=== PATIENT | male | born 1975 | race Caucasian/White ===

== ENCOUNTER 2016-12-16 18:35 | Emergency (ER) | payer BC ==
[~2016-12-16] VITALS: Ht 175.3 cm; Wt 121.9 kg
[~2016-12-16 18:35] MED LIST: LISI-729 PO
[2016-12-16 18:36] VITALS: TEMP 36.7; Ht 175.3 cm; Wt 121.9 kg
[2016-12-16] MEDS ORDERED: ONDANSETRON INJ 2 MG/ML 2 ML VIAL IV STA (18:47)
[2016-12-16] MEDS ORDERED: SODIUM CHLORIDE 0.9% 1000ML 500 ML IV STA (18:47)
[2016-12-16] MEDS ORDERED: SODIUM CHLORIDE 0.9% 1000ML 1,000 ML IV STA (18:47)
[2016-12-16] MEDS ORDERED: RANITIDINE HCL 50 MG/100 ML D5W IV STA (18:47)
[2016-12-16 19:06] LABS: URINE APPEARANCE CLEAR (CLEAR); URINE BILIRUBIN NEG (NEG); URINE COLOR YELLOW; URINE NITRITE NEG (NEG); URINE SPECIFIC GRAVITY 1.016 (1.000-1.030); UROBILINOGEN NEG (NEG); ZZUR CULT IF INDIC CLEAN CATCH NO
[2016-12-16 19:10] LABS: MANUAL MICROSCOPIC REQUIRED? NO; REVIEW REQ? NO
--- NOTE | 2016-12-16 19:15 | DIAGNOSTIC IMAGING REPORT ---
CHEST ONE VIEW PORTABLE CLINICAL HISTORY: Abdominal pain. COMPARISON STUDY: Chest radiograph March 12, 2011. FINDINGS: Lung volumes are normal. No pneumothorax or pleural effusion is present. Cardiac size is normal. Mediastinal contours are normal. There is no evidence of pulmonary edema. Cardiomediastinal silhouette is unremarkable. IMPRESSION: No acute cardiopulmonary findings. Electronically signed by: Arthur Varghese M.D. 12/16/2016 7:13 PM Dictated Date/Time: 12/16/2016 7:13 PM
--- NOTE | 2016-12-16 19:39 | EMERGENCY ROOM VISIT NOTE ---
History Report prepared by Erica: Brendan Jiang Under the Supervision of: Dr. Amrit Medellin M.D. First contact with patient: 18:42 Chief Complaint: GI ASSESSMENT Stated Complaint: STOMACH PAIN, VOMITING W/BLOOD, DIARRHEA, NAUSEA Nursing Triage Summary: Pt c/o being "sick in the stomach and throwing up blood. We just saw the blood today." Pt states patient has had diarrhea, pain and nausea. Mid epigastric pain "Like heartburn" History of Present Illness The patient is a 41 year old male who presents to the Emergency Room with complaints of constant nausea that began a week ago. He rates his pain as a 4/ 10 in severity and states that his nausea is worsened after eating. The patient reports that two weeks ago he started to experience heartburn, which he took medication for. He states that his symptoms would return shortly after the medication "wore off". The patient is accompanied by his who states that his heartburn occurs after he eats anything acidic, drinks coffee, or chews. The patient states that he has been experiencing nausea, intermittent vomiting, diarrhea, and lightheadedness for the last week. He admits that his heartburn symptoms have been new. The patient also states that his diarrhea has been "black as coal" since yesterday. The patient states that he went to [employer] this morning and came back home to eat lunch, which is when he last experienced an episode of vomiting with blood clots. The patient reports that he currently is experiencing upper abdominal pain. His states that he has an appointment on January 02 with a GI doctor for an endoscopy and a colonoscopy. He states that his PCP is Dr. Hodges. He denies any ulcer history and any syncopal episode. Source of History: patient Onset: a week ago Position: other (global) Symptom Intensity: 4/10 Timing: constant Modifying Factors (Worsening): other (drinking coffee, acidic foods) Associated Symptoms: + vomiting, + diarrhea, No LOC Review of Systems See HPI for pertinent positives & negatives. A total of 10 systems reviewed and were otherwise negative. Past Medical & Surgical Surgical Problems: (1) H/O vasectomy Family History Patient reports no known family medical history. Social History Smoking Status: Former Smoker Marital Status: Housing Status: lives with significant other Occupation Status: employed Current/Historical Medications Scheduled Pantoprazole (Protonix), 20 MG PO DAILY Ranitidine (Zantac), 150 MG PO BID Allergies Coded Allergies: Lidocaine (Verified Allergy, Unknown, "SEVERE HIVES", 12/16/15) Meperidine (Verified Allergy, Unknown, EXTREMELY ILL, 12/16/15) Physical Exam Vital Signs Date Time Temp Pulse Resp B/P (MAP) Pulse Ox O2 Delivery O2 Flow Rate FiO2 12/16/16 20:35 55 18 157/100 97 Room Air 12/16/16 18:36 36.7 64 18 166/104 95 Room Air Physical Exam GENERAL: Patient is in no acute distress. HEENT: No acute trauma, normocephalic atraumatic, mucous membranes moist, no nasal congestion, no scleral icterus. NECK: No stridor, no adenopathy, no meningismus, trachea is midline. LUNGS: Clear to auscultation bilaterally, no wheeze, no rhonchi, breath sounds equal. HEART: Without murmurs gallops or rubs, regular rate and rhythm. ABDOMEN: Soft, tender in epigastrium along the right side of the abdomen, bowel sounds positive, no hernias, no peritonitis. EXTREMITIES: No cyanosis or edema, full range of motion of all the joints without pain or difficulty, no signs for acute trauma. NEUROLOGIC: Oriented x 3, no acute motor or sensory deficits, no focal weakness. SKIN: No rash, no jaundice, no diaphoresis. RECTAL: Brown stool, heme negative. Medical Decision & Procedures ER Provider Diagnostic Interpretation: Radiology results as stated below per my review and radiologist interpretation: CHEST ONE VIEW PORTABLE CLINICAL HISTORY: Abdominal pain. COMPARISON STUDY: Chest radiograph March 12, 2011. FINDINGS: Lung volumes are normal. No pneumothorax or pleural effusion is present. Cardiac size is normal. Mediastinal contours are normal. There is no evidence of pulmonary edema. Cardiomediastinal silhouette is unremarkable. IMPRESSION: No acute cardiopulmonary findings. Electronically signed by: Arthur Varghese M.D. 12/16/2016 7:13 PM Dictated Date/Time: 12/16/2016 7:[address] OF THE ABDOMEN AND PELVIS WITH CONTRAST CLINICAL HISTORY: Abdominal pain, diarrhea, vomiting and nausea. COMPARISON STUDY: None. TECHNIQUE: Following IV administration of 116. mL of Optiray-320, axial images of the abdomen and pelvis were obtained from the lung bases to the proximal femurs. Images were reviewed in the axial, sagittal, and coronal planes. IV contrast was administered without complication. A dose lowering technique was utilized adhering to the principles of ALARA. CT DOSE: 1406.73 mGy.cm FINDINGS: There is probable fatty infiltration of the liver. Multiple subcentimeter hepatic lesions are too small characterize but likely reflect cysts. The spleen, adrenal glands, kidneys and pancreas are normal. There is no biliary or pancreatic ductal dilatation. There is no peripancreatic or pericholecystic infiltration. The caliber and wall thickness of small and large bowel are normal. The appendix is normal. No pneumatosis, free air or portal venous gas is present. There is no lymphadenopathy. No suspicious skeletal lesions are identified. There is a 7 mm right renal cyst. IMPRESSION: 1. No acute process within the abdomen or pelvis. 2. Probable fatty infiltration of liver. Electronically signed by: Arthur Varghese M.D. 12/16/2016 8:31 PM Dictated Date/Time: 12/16/2016 8:23 PM Laboratory Results 12/16/16 19:15 Red Blood Count 5.16, Mean Corpuscular Volume 84.1, Mean Corpuscular Hemoglobin 28.9, Mean Corpuscular Hemoglobin Concent 34.3, Mean Platelet Volume 9.8, Neutrophils (%) (Auto) 52.8, Lymphocytes (%) (Auto) 36.4, Monocytes (%) (Auto) 8.6, Eosinophils (%) (Auto) 1.7, Basophils (%) (Auto) 0.2, Neutrophils # (Auto) 3.11, Lymphocytes # (Auto) 2.15, Monocytes # (Auto) 0.51, Eosinophils # (Auto) 0.10, Basophils # (Auto) 0.01 12/16/16 19:15 Test 12/16/16 00:00 12/16/16 19:15 Urine Color YELLOW Urine Appearance CLEAR (CLEAR) Urine pH 7.0 (4.5-7.5) Urine Specific [place] 1.016 (1.000-1.030) Urine Protein NEG (NEG) Urine Glucose (UA) NEG (NEG) Urine Ketones NEG (NEG) Urine Occult Blood NEG (NEG) Urine Nitrite NEG (NEG) Urine Bilirubin NEG (NEG) Urine Urobilinogen NEG (NEG) Urine Leukocyte Esterase NEG (NEG) White Blood Count 5.90 K/uL (4.8-10.8) Red Blood Count 5.16 M/uL (4.7-6.1) Hemoglobin 14.9 g/dL (14.0-18.0) Hematocrit 43.4 % (42-52) Mean Corpuscular Volume 84.1 fL (80-100) Mean Corpuscular Hemoglobin 28.9 pg (25-34) Mean Corpuscular Hemoglobin Concent 34.3 g/dl (32-36) Platelet Count 222 K/uL (130-400) Mean Platelet Volume 9.8 fL (7.4-10.4) Neutrophils (%) (Auto) 52.8 % Lymphocytes (%) (Auto) 36.4 % Monocytes (%) (Auto) 8.6 % Eosinophils (%) (Auto) 1.7 % Basophils (%) (Auto) 0.2 % Neutrophils # (Auto) 3.11 K/uL (1.4-6.5) Lymphocytes # (Auto) 2.15 K/uL (1.2-3.4) Monocytes # (Auto) 0.51 K/uL (0.11-0.59) Eosinophils # (Auto) 0.10 K/uL (0-0.5) Basophils # (Auto) 0.01 K/uL (0-0.2) RDW Standard Deviation 39.7 fL (36.4-46.3) RDW Coefficient of Variation 13.1 % (11.5-14.5) Immature Granulocyte % (Auto) 0.3 % Immature Granulocyte # (Auto) 0.02 K/uL (0.00-0.02) Platelet Estimate NORMAL Red Blood Cell Morphology Unremarkable Prothrombin Time 11.3 SECONDS (9.0-12.0) Prothromb Time International Ratio 1.1 (0.9-1.1) Activated Partial Thromboplast Time 27.5 SECONDS (21.0-31.0) Partial Thromboplastin Ratio 1.1 Anion Gap 6.0 mmol/L (3-11) Est Creatinine Clear Calc Drug Dose 130.5 ml/min Estimated GFR () 112.1 Estimated GFR (Non- 96.7 BUN/Creatinine Ratio 17.9 (10-20) Calcium Level 8.4 mg/dl (8.5-10.1) Total Bilirubin 0.4 mg/dl (0.2-1) Aspartate Amino Transf (AST/SGOT) 19 U/L (15-37) Alanine Aminotransferase (ALT/SGPT) 43 U/L (12-78) Alkaline Phosphatase 55 U/L (45-117) Total Protein 7.5 gm/dl (6.4-8.2) Albumin 3.8 gm/dl (3.4-5.0) Globulin 3.7 gm/dl (2.5-4.0) Albumin/Globulin Ratio 1.0 (0.9-2) Lipase 154 U/L (73-393) Laboratory results reviewed by me. Medications Administered Medications (Trade) Dose Ordered Sig/Osmar Route Start Time Stop Time Status Last Admin Dose Admin Sodium Chloride 500 ml @ 999 mls/hr Q31M STAT IV 12/16/16 18:47 12/16/16 19:17 DC 12/16/16 18:47 999 MLS/HR Ondansetron HCl (Zofran Inj) 4 mg NOW STAT IV 12/16/16 18:47 12/16/16 18:52 DC 12/16/16 19:13 4 MG Sodium Chloride 1,000 ml @ 200 mls/hr Q5H STAT IV 12/16/16 18:47 12/16/16 21:19 DC 12/16/16 18:47 200 MLS/HR Ranitidine HCl (zANTac IV) 50 mg NOW STAT IV 12/16/16 18:47 12/16/16 18:52 DC 12/16/16 19:13 50 MG Pantoprazole Sodium (Protonix Tab) 40 mg NOW STAT PO 12/16/16 20:35 12/16/16 20:36 DC 12/16/16 20:48 40 MG ECG Indication: abdominal pain Rate (beats per minute): 58 Rhythm: sinus bradycardia Findings: no acute ischemic change, no ectopy ED Course 1841: The patient was evaluated in room B02. A complete history and physical exam was performed. 1846: Zantac IV 50 mg IV, Sodium Chloride 1000 ml @ 200 mls/hr IV, Zofran Injection 4 mg IV, Sodium Chloride 500 ml @ 999 mls/hr IV. 2034: Protonix Tab 40 mg PO. 2044: Reevaluated the patient. Discussed results and discharge instructions: He verbalized understanding and agreement. The patient is ready for discharge. Medical Decision The patient is a 41 year old male who presents to the ED with complaints of constant nausea that began a week ago. Differential diagnoses considered include upper or lower GI bleeding, esophageal tear, gastritis or ulcer, pancreatitis, diverticulitis, appendicitis, dehydration, and UTI. There is no leukocytosis or concerning anemia. No significant electrolyte abnormality, kidney failure, hepatitis or pancreatitis. Urinalysis does not show infection. Chest x-ray shows no pneumonia, free air or mediastinal widening. EKG shows a sinus rhythm, no acute ischemia. Abdominal and pelvis CT does not show diverticulitis or pancreatitis. There is no bowel obstruction. No acute surgical process based on the CT results. Stool heme testing was negative. The patient received IV saline, IV Zofran and IV Zantac. He was given a dose of oral Protonix, he feels markedly better. Patient presents with epigastric abdominal pain, he has had vomiting. He does have worsening symptoms with eating. He has an upcoming appointment with GI in a week or 2. The patient is being placed on Zantac and Protonix. I want him to take these regularly. He can return here for worsening symptoms or lack of improvement. He was told to stick to a very bland diet for the next few days. He likely has gastritis. The hematemesis earlier was likely from just the retching itself. Medication Reconcilliation Current Medication List: was personally reviewed by me Blood Pressure Screening Patient's blood pressure: Elevated blood pressure Blood pressure disposition: Elevated BP felt to be situational Impression Primary Impression: Epigastric abdominal pain Additional Impressions: Vomiting Diarrhea Scribe Attestation The scribe's documentation has been prepared under my direction and personally reviewed by me in its entirety. I confirm that the note above accurately reflects all work, treatment, procedures, and medical decision making performed by me. Departure Information Dispostion Home / Self-Care Prescriptions Pantoprazole (Protonix) 20 Mg Tab 20 MG PO DAILY, #30 TAB Prov: Amrit Medellin M.D. 12/16/16 Ranitidine (Zantac) 150 Mg Tab 150 MG PO BID for 7 Days, #14 TAB Prov: Amrit Medellin M.D. 12/16/16 Referrals Christian Hodges D.O. (PCP) Forms HOME CARE DOCUMENTATION FORM, IMPORTANT VISIT INFORMATION Patient Instructions My [facility] Additional Instructions bland diet---crackers, soup, toast, gatorade zantac 2x per day for 1 week protonix daily for 1 month rest return for worsening symptoms or fever or persistent vomiting follow with GI as scheduled Problem Qualifiers
[2016-12-16 19:47] LABS: INR 1.1 (0.9-1.1); PARTIAL THROMBOPLASTIN RATIO 1.1; PROTHROMBIN TIME (PATIENT) 11.3 SECONDS (9.0-12.0)
[2016-12-16 19:55] LABS: BUN/CREATININE RATIO 17.9 (10-20); CALCIUM 8.4 mg/dl (8.5-10.1); CREATININE 0.98 mg/dl (0.60-1.40)
[2016-12-16 20:15] LABS: BASO % 0.2 %; BASO ABS # 0.01 K/uL (0-0.2); COMPLETE YES; EOS % 1.7 %; HEMATOCRIT 43.4 % (42-52); IG% 0.3 %; LYMPH % 36.4 %; LYMPH ABS # 2.15 K/uL (1.2-3.4); MEAN CELL VOLUME 84.1 fL (80-100); MEAN CORPUSCULAR HEMOGLOBIN 28.9 pg (25-34); MEAN CORPUSCULAR HGB CONC 34.3 g/dl (32-36); MEAN PLATELET VOLUME 9.8 fL (7.4-10.4); MONO % 8.6 %; NEUT % 52.8 %; PLATELET COUNT 222 K/uL (130-400); PLT ESTIMATE NORMAL; RED BLOOD COUNT 5.16 M/uL (4.7-6.1)
[2016-12-16] MEDS ORDERED: OPTIRAY 320 IV PRN (20:15)
--- NOTE | 2016-12-16 20:33 | DIAGNOSTIC IMAGING REPORT ---
CT OF THE ABDOMEN AND PELVIS WITH CONTRAST CLINICAL HISTORY: Abdominal pain, diarrhea, vomiting and nausea. COMPARISON STUDY: None. TECHNIQUE: Following IV administration of 116. mL of Optiray-320, axial images of the abdomen and pelvis were obtained from the lung bases to the proximal femurs. Images were reviewed in the axial, sagittal, and coronal planes. IV contrast was administered without complication. A dose lowering technique was utilized adhering to the principles of ALARA. CT DOSE: 1406.73 mGy.cm FINDINGS: There is probable fatty infiltration of the liver. Multiple subcentimeter hepatic lesions are too small characterize but likely reflect cysts. The spleen, adrenal glands, kidneys and pancreas are normal. There is no biliary or pancreatic ductal dilatation. There is no peripancreatic or pericholecystic infiltration. The caliber and wall thickness of small and large bowel are normal. The appendix is normal. No pneumatosis, free air or portal venous gas is present. There is no lymphadenopathy. No suspicious skeletal lesions are identified. There is a 7 mm right renal cyst. IMPRESSION: 1. No acute process within the abdomen or pelvis. 2. Probable fatty infiltration of liver. Electronically signed by: Arthur Varghese M.D. 12/16/2016 8:31 PM Dictated Date/Time: 12/16/2016 8:23 PM
[2016-12-16 20:35] VITALS: BP 157/100; PULSE 55; O2SAT 97
[2016-12-16] MEDS ORDERED: PANTOprazole SOD 40 MG TAB PO STA (20:35)
[2016-12-16] MEDS ORDERED: PRT/20 PO (20:49)
[2016-12-16] MEDS ORDERED: ZNTT/150 PO (20:49)
== END 2016-12-16 21:00 | disposition home or self-care (01) ==
LOC: C.EDB 18:36
DX: R10.13 Epigastric pain (principal); R11.2 Nausea with vomiting, unspecified; R19.7 Diarrhea, unspecified; Z87.891 Personal history of nicotine dependence; Z98.52 Vasectomy status

== ENCOUNTER 2023-11-05 10:39 | Inpatient (IN) ==
--- NOTE | 2023-11-05 11:15 | Emergency Department Note ---
Impression & Plan Chest pain, Hypertension ED Provider Note ED Provider Note NAME: JENNIFER DAN AGE:48 SEX: Male : 1975 ARRIVES VIA: Private vehicle INFORMANT: Patient ED PROVIDER(s): Denise Ashby DO CHIEF COMPLAINT: Chest pain, high blood pressure, referred from office HPI: This is a 48-year-old male presents emerged from due to concern for atypical chest pain after it was noted he had significantly elevated blood pressure readings in a [facility] office. Patient states his blood pressure is always high despite his use of medication. He states he has had chest pain for several weeks, mostly central and slightly left-sided and does radiate into his left upper extremity. He states today it also began radiating into his back and left neck. He denies any coming nausea, vomiting, dizziness, shortness of breath. No recent fevers, chills, or URI symptoms. No recent change in diet or medication. He denies any recent leg swelling. He does admit to coming paresthesias in the left upper extremity, no weakness. He describes the pain as sharp closer to the center and duller out towards the shoulder and into the arm. Patient states pain felt similar to when he ended up having a cardiac catheterization. He said that was 2 years ago. PAST MEDICAL HISTORY:See Below PAST SURGICAL HISTORY:See Below FAMILY HISTORY:See Below SOCIAL HISTORY:See Below HOME MEDICATIONS:See Below ALLERGIES:See Below VITALS:See Below PHYSICAL EXAMINATION: GENERAL: alert, well appearing, well nourished, no distress, non-toxic EYE EXAM: normal conjunctiva, PERRL and EOM's grossly intact OROPHARYNX: no exudate, no erythema, lips, buccal mucosa, and tongue normal and mucous membranes are moist NECK: supple, no nuchal rigidity, no adenopathy, non-tender LUNGS: Clear to auscultation. Normal chest wall mechanics, no w/r/r HEART: no murmurs, S1 normal and S2 normal, pain with palpation over the left anterior superior chest wall laterally closer to the shoulder ABDOMEN: abdomen soft, non-tender, normo-active bowel sounds, no masses, no rebound or guarding. BACK: Back is symmetrical on inspection and there is no deformity, no midline tenderness, no CVA tenderness. SKIN: no rashes, petechiae, orbruising UPPER EXTREMITIES: upper extremities are grossly normal. FROM, nml pulses b/l. LOWER EXTREMITIES: No pitting edema. FROM, nml pulses b/l. NEURO EXAM: Normal sensorium, cranial nerves II-XII grossly intact, normal speech, no facial droop,nogross weakness of arms, no gross weakness of legs. Gross sensation intact. No ataxia. Vital Signs: reviewed and remarkable Differential Diagnosis: acute coronary syndrome, pericarditis, pulmonary embolus, aortic dissection, pneumonia, pneumothorax, musculoskeletal pain, shingles, GERD, GI bleed, as well as others were considered MEDICAL DECISION MAKING: This is a 48-year-old male presents emerged from due to concern for chest pain that has been ongoing as well as noted high blood pressure. He was noted to be significantly hypertensive on arrival with other vital signs stable. Labs drawn and sent, IV established, EKG and chest x-ray performed bedside interpreted by me and patient monitor on telemetry. Patient given IV hydralazine with improvement in his blood pressure and mild improvement in his symptoms. Patient's labs and imaging are reassuring. Patient did require several doses of IV hydralazine in order to maintain a slightly lower level the patient was still significantly hypertensive. Upon review of prior outpatient records he has been tried on several other classes of antihypertensives with unfortunate adverse reactions. Patient given IV fluids, IV Tylenol, IV Pepcid, and eventually IV fentanyl additionally after discussion with the hospitalist at bedside as patient is having worsening pain. Patient with multiple risk factors for ACS and does have documented CAD. Due to persistent pain as well as uncontrolled hypertension at this time I feel he would benefit from additional inpatient evaluation and management. Patient verbalized understanding of all results and was in agreement with the plan. Case discussed with hospitalist team for additional evaluation and management. Consultation(s): 1355: Discussed with No [facility] hospitalist team for additional evaluation and management. ER Treatment Provided: See below Diagnostics Interpreted By Me: -ECG: Sinus bradycardia at 59, normal axis, normal intervals, no acute ST/T wave changes -Cardiac Monitoring: An order was placed for continuous cardiac monitoring. The monitor shows a rate of 78 with normal sinus rhythm. -Laboratory studies: As stated above and show below. -Imaging studies: X-ray Chest: A single view study of the chest was reviewed and was negative for cardiomegaly, focal infiltrate, effusion, pulmonary edema, or wide mediastinum. Triage Nursing Note Reviewed Prior/Outside Records Reviewed -prior cardiology catheterization and evaluation obtained from [facility] records which show 60% LAD lesion on cardiac catheterization from 2021 Past Med/Surg History Problem List (Updated 11/05/23 @ 16:14 by John Ferguson) Dyslipidemia, goal LDL below 70 Nonobstructive atherosclerosis of coronary artery Chest pain at rest Uncontrolled hypertension Hypertensive urgency Chest pain Hypertension (Acute) Medical History History of hypertension Romero's esophagus GERD (gastroesophageal reflux disease) CAD (coronary artery disease) Dyslipidemia OLIVIER (obstructive sleep apnea) Right ankle instability Right ankle pain Surgical History No pertinent past surgical history Family History Other Hypertension Social History Smoking Status: Former smoker Tobacco Type: Smokeless Tobacco (Dip or Chew) Age Quit Using Tobacco: 46; Second Hand Exposure: No; Do You Dip or Chew Tobacco: No; Tobacco Cessation Education Requested by Patient: No Hx Alcohol Use: No Hx Substance Use: No Preferred Language: Malagasy Communication Ability: Effective Housing Inspector Required: No Beliefs That Will Affect Care: None Current Living Situation: Spouse and Family Other Information That Helps Us Care for You: No Feels Safe at Home: Yes Safety Concerns: Feels Safe At This Time Allergies Allergies Allergy/AdvReac Type Severity Reaction Status Date / Time lidocaine Allergy Unknown "SEVERE Verified 11/05/23 13:15 HIVES" meperidine Allergy Unknown EXTREMELY Verified 11/05/23 13:15 ILL oxycodone AdvReac Intermediate sick Verified 11/05/23 21:36 nitroglycerin AdvReac Headache Verified 11/05/23 21:34 Home Meds Home Medications Medication Instructions Recorded Confirmed amlodipine 2.5 mg tablet 5 mg PO DAILY 11/05/23 11/05/23 aspirin 81 mg tablet,delayed 81 mg PO QAM 11/05/23 11/05/23 release losartan 100 mg tablet 100 mg PO QAM 11/05/23 11/05/23 Results & Data (ED) Vital Signs Vital Signs - 24 hr 11/05/23 10:41 11/05/23 11:00 11/05/23 11:03 Temperature 36.5 C Temperature Source Temporal Artery Scan Pulse Rate 64 64 60 Pulse Rate from SpO2 Sensor 64 Respiratory Rate 18 20 Respiratory Effort / Characteristics Respiratory Depth Blood Pressure 239/112 H 228/129 H Blood Pressure Mean 154 162 Pulse Oximetry 98 99 Oxygen Delivery Method Room Air Room Air Sepsis New/Unexplained Change in Mental Status No Sepsis Action Taken by Nursing No Action Required 11/05/23 11:09 11/05/23 11:54 11/05/23 12:05 Temperature Temperature Source Pulse Rate 62 67 Pulse Rate from SpO2 Sensor 61 Respiratory Rate 20 20 Respiratory Effort / Characteristics Non-Labored Spontaneous Respiratory Depth Normal Blood Pressure 207/124 H 167/110 H Blood Pressure Mean 151 114 Pulse Oximetry 97 99 Oxygen Delivery Method Room Air Room Air Sepsis New/Unexplained Change in Mental Status Sepsis Action Taken by Nursing 11/05/23 12:10 11/05/23 12:15 11/05/23 12:17 Temperature Temperature Source Pulse Rate 65 61 59 L Pulse Rate from SpO2 Sensor Respiratory Rate 18 18 18 Respiratory Effort / Characteristics Respiratory Depth Blood Pressure 186/115 H 166/111 H 171/100 H Blood Pressure Mean 134 122 132 Pulse Oximetry 99 99 98 Oxygen Delivery Method Room Air Room Air Room Air Sepsis New/Unexplained Change in Mental Status Sepsis Action Taken by Nursing 11/05/23 12:42 11/05/23 13:30 11/05/23 13:45 Temperature Temperature Source Pulse Rate 67 73 65 Pulse Rate from SpO2 Sensor 67 74 64 Respiratory Rate 21 20 20 Respiratory Effort / Characteristics Respiratory Depth Blood Pressure 193/135 H 175/121 H 195/107 H Blood Pressure Mean 154 139 136 Pulse Oximetry 98 98 97 Oxygen Delivery Method Room Air Room Air Sepsis New/Unexplained Change in Mental Status Sepsis Action Taken by Nursing 11/05/23 14:01 Temperature Temperature Source Pulse Rate 72 Pulse Rate from SpO2 Sensor 70 Respiratory Rate 20 Respiratory Effort / Characteristics Respiratory Depth Blood Pressure 168/94 H Blood Pressure Mean 116 Pulse Oximetry 97 Oxygen Delivery Method Room Air Sepsis New/Unexplained Change in Mental Status Sepsis Action Taken by Nursing Laboratory Data 11/06/23 02:24 11/06/23 02:24 Lab Results 11/05/23 11/05/23 11/05/23 Range/Units 10:54 11:12 12:33 WBC 4.78 L (4.8-10.8) K/ul RBC 5.32 (4.70-6.10) M/uL Hgb 15.2 (14.0-18.0) g/dl Hct 43.6 (42.0-52.0) % MCV 82.0 (80.0-100.0) fL MCH 28.6 (25.0-34.0) pg MCHC 34.9 (32.0-36.0) g/dL RDW Std Deviation 43.8 (36.4-46.3) fL RDW Coeff of Sandi 14.9 H (11.5-14.5) % Plt Count 237 (130-400) K/uL MPV 9.5 (9.4-12.4) fL Immature Gran % (Auto) 0.4 % Neut % (Auto) 48.7 % Lymph % (Auto) 37.9 % [place] % (Auto) 10.5 % Eos % (Auto) 2.1 % Baso % (Auto) 0.4 % Neut # (Auto) 2.33 (1.40-6.50) K/uL Lymph # (Auto) 1.81 (1.20-3.40) K/uL [place] # (Auto) 0.50 (0.11-0.59) K/uL Eos # (Auto) 0.10 (0.00-0.50) K/uL Baso # (Auto) 0.02 (0.00-0.20) K/uL Immature Gran # (Auto) 0.02 (0.01-0.20) K/uL PT 10.8 (9.0-12.0) Seconds INR 1.0 (0.9-1.1) D-Dimer 290 (0-500) ug/L FEU Sodium 136 (136-145) mmol/L Potassium 3.7 (3.5-5.1) mmol/L Chloride 102 (98-107) mmol/L Carbon Dioxide 31 (21-32) mmol/L Anion Gap 3 (3-11) BUN 13 (6-23) mg/dl Creatinine 0.77 (0.6-1.4) mg/dl Est Cr Clr Drug Dosing 156.7 ml/min Est GFR ( Amer) 126.1 ml/min Est GFR (Non-Af Amer) 108.8 ml/min BUN/Creatinine Ratio 16.9 (10-20) Glucose 94 (70-99(Fasting)) mg/dl Calcium 9.2 (8.6-10.3) mg/dl Magnesium 2.0 (1.7-2.4) mg/dl Total Bilirubin 0.7 (0.2-1.0) mg/dl AST 16 (13-39) U/L ALT 19 (7-52) U/L Alkaline Phosphatase 44 (34-104) U/L Troponin I High Sens 5.6 (0-20) pg/ml Total Protein 7.4 (6.0-8.3) gm/dl Albumin 4.3 (3.4-5.0) gm/dl Globulin 3.1 (2.5-4.0) gm/dl Albumin/Globulin Ratio 1.4 (0.9-2) Lipase 29 (11-82) U/L TSH 1.947 (0.300-4.500) uIu/ml Urine Color Yellow Urine Appearance Clear (Clear) Urine pH 6.0 (4.5-7.5) Ur Specific [place] 1.014 (1.000-1.030) Urine Protein Negative (Negative) Urine Glucose (UA) Negative (Negative) Urine Ketones Negative (Negative) Urine Blood Negative (Negative) Urine Nitrite Negative (Negative) Urine Bilirubin Negative (Negative) Urine Urobilinogen Negative (Negative) Ur Leukocyte Esterase Negative (Negative) Anaplasma Smear See Comment Babesia Smear See Comment Lyme Disease Screen Negative (Negative) Administered Medications Acetaminophen (Acetaminophen 325 Mg Tab) 650 mg PO Q4H PRN PRN Reason: pain/fever Stop: 12/05/23 16:48 Last Admin: 11/05/23 20:06 Dose: 650 mg Documented By: RUFINO Hydrocodone Bitart/Acetaminophen (Hydrocodone/Acetamophen 5/325mg Tab) 1 tab PO QID PRN PRN Reason: Pain Stop: 11/19/23 21:36 Last Admin: 11/05/23 21:56 Dose: 1 tab Documented By: SIERRA Carvedilol (Carvedilol 3.125 Mg Tab) 3.125 mg PO BIDM TERENCE Stop: 12/05/23 16:59 Last Admin: 11/05/23 18:12 Dose: 3.125 mg Documented By: SAV Fentanyl Citrate (Fentanyl Citrate Pf 100 Mcg/2 Ml Vial) 50 mcg IV Q15M PRN PRN Reason: Pain Stop: 11/19/23 14:48 Last Admin: 11/05/23 14:56 Dose: 50 mcg Documented By: KATHERINE Hydralazine HCl (Hydralazine Hcl 20 Mg/Ml Vial) 5 mg IV Q4H PRN PRN Reason: Blood Pressure - High Stop: 12/05/23 16:48 Last Admin: 11/05/23 21:23 Dose: 5 mg Documented By: SIERRA Nitroglycerin (Nitroglycerin 2% Ointment 30gm Tube) 1 inch EXT Q6H TERENCE Stop: 12/05/23 16:29 Last Admin: 11/05/23 18:16 Dose: 1 inch Documented By: SAV Discontinued Medications Amlodipine Besylate (Amlodipine Besylate 5 Mg Tab) 5 mg PO NOW ONE Stop: 11/05/23 23:10 Last Admin: 11/05/23 23:26 Dose: 5 mg Documented By: SIERRA Hydralazine HCl (Hydralazine Hcl 20 Mg/Ml Vial) 5 mg IV NOW ONE Stop: 11/05/23 11:40 Last Admin: 11/05/23 12:00 Dose: 5 mg Documented By: Hydralazine HCl (Hydralazine Hcl 20 Mg/Ml Vial) 5 mg IV NOW ONE Stop: 11/05/23 13:20 Last Admin: 11/05/23 13:40 Dose: 5 mg Documented By: Hydralazine HCl (Hydralazine Hcl 20 Mg/Ml Vial) 5 mg IV NOW ONE Stop: 11/05/23 14:36 Last Admin: 11/05/23 14:42 Dose: 5 mg Documented By: KATHERINE Acetaminophen (Ofirmev) 1,000 mg in 100 mls @ 400 mls/hr IV NOW STA Stop: 11/05/23 13:19 Last Infusion: 11/05/23 13:57 Dose: Infused Documented By: Admin: 11/05/23 13:41 Dose: 400 mls/hr Documented By: Famotidine (Pepcid 20mg Iv Push) 20 mg in 5 mls @ 2.5 mls/min IV NOW STA Stop: 11/05/23 13:06 Last Admin: 11/05/23 13:40 Dose: 2.5 mls/min Documented By: MSG Promethazine HCl 12.5 mg/ (Sodium Chloride) 50.5 mls @ 202 mls/hr IV NOW STA Stop: 11/05/23 21:39 Last Infusion: 11/05/23 22:09 Dose: Infused Documented By: Admin: 11/05/23 21:54 Dose: 202 mls/hr Documented By: SIERRA Nitroglycerin (Nitroglycerin Sl 0.4 Mg/Tab Tab) Confirm Administered Dose 0.4 mg .ROUTE .STK-MED ONE Stop: 11/05/23 14:38 Last Admin: 11/05/23 14:42 Dose: 0.4 mg Documented By: KATHERINE Nitroglycerin (Nitroglycerin Sl 0.4 Mg/Tab Tab) Confirm Administered Dose 0.4 mg .ROUTE .STK-MED ONE Stop: 11/05/23 14:48 Last Admin: 11/05/23 14:48 Dose: 0.4 mg Documented By: KATHERINE Ondansetron HCl (Ondansetron Inj 2 Mg/Ml 2 Ml Vial) 4 mg IV Q6H PRN PRN Reason: Nausea Stop: 12/05/23 16:48 Last Admin: 11/05/23 20:07 Dose: 4 mg Documented By: RUFINO Oxycodone HCl (Oxycodone Hcl Ir 5 Mg Tab (Immediate Release)) 5 mg PO NOW STA Stop: 11/05/23 21:32 Last Admin: 11/05/23 21:43 Dose: Not Given Documented By: SIERRA Perflutren Lipid Microsphere (Perflutren Lipid Microsphere (Definity)) 2 ml IV ONCE ONE Stop: 11/05/23 15:20 Last Admin: 11/05/23 15:17 Dose: 2 ml Documented By: KATHERINE Imaging Data Radiologist's Impression: Chest X-Ray 11/05/23 11:11 XR chest 1V portable CLINICAL HISTORY: Chest pain. COMPARISON STUDY: Chest radiographs January 14, 2022. FINDINGS: Lung volumes are normal. Lungs are clear. There is no pneumothorax or pleural effusion. Cardiac size is normal. Mediastinal contours are normal. There is no evidence for pulmonary edema. IMPRESSION: No acute cardiopulmonary findings. ACT 112: Negative or not required by law. Electronically signed by: Arthur Varghese M.D. 11/05/2023 12:30 PM Discharge Plan Visit Data Chief Complaint: Chest Pain Stated Complaint: CHEST PAINS, L ARM PAIN ED Provider: Denise Ashby Discharge Problem: Chest pain, Hypertension Patient Disposition: Admitted As Inpatient Discharge Instructions Interventions: ED Discharge Assessment Last Done: 11/05/23 16:22
[2023-11-05 11:30] LABS: Basophils # (auto) 0.02 K/uL (0.00-0.20); Basophils % (auto) 0.4 %; Eosinophils % (auto) 2.1 %; Hematocrit (blood only) 43.6 % (42.0-52.0); Hemoglobin 15.2 g/dl (14.0-18.0); Immature Granulocytes # (auto) 0.02 K/uL (0.01-0.20); Immature Granulocytes % (auto) 0.4 %; Lymphocytes # (auto) 1.81 K/uL (1.20-3.40); Lymphocytes % (auto) 37.9 %; Mean Corpuscular Hemoglobin 28.6 pg (25.0-34.0); Mean Corpuscular Hgb Conc 34.9 g/dL (32.0-36.0); Mean Platelet Volume 9.5 fL (9.4-12.4); Monocytes % (auto) 10.5 %; Neutrophils # (auto) 2.33 K/uL (1.40-6.50); Neutrophils % (auto) 48.7 %; Platelet Count 237 K/uL (130-400); RDW Coefficient of Variation 14.9 % (11.5-14.5); RDW Standard Deviation 43.8 fL (36.4-46.3); Red Blood Count 5.32 M/uL (4.70-6.10); White Blood Count 4.78 K/ul (4.8-10.8)
[2023-11-05 11:34] LABS: D Dimer 290 ug/L FEU (0-500); Prothrombin Time 10.8 Seconds (9.0-12.0)
[2023-11-05 11:45] LABS: Albumin Globulin Ratio 1.4 (0.9-2); Albumin Level 4.3 gm/dl (3.4-5.0); BUN Creatinine Ratio 16.9 (10-20); Bilirubin,Total 0.7 mg/dl (0.2-1.0); Calcium 9.2 mg/dl (8.6-10.3); Creatinine Clr Calc Pharmacy 156.7 ml/min; Est GFR (African American) 126.1 ml/min; Est GFR (Non-African American) 108.8 ml/min; Globulin 3.1 gm/dl (2.5-4.0); Potassium 3.7 mmol/L (3.5-5.1); Total Protein 7.4 gm/dl (6.0-8.3)
[2023-11-05 11:47] LABS: Appearance Urine Clear (Clear); Bilirubin Urine Negative (Negative); Blood Urine Negative (Negative); Color Urine Yellow; Glucose Urine UA Negative (Negative); Ketones Urine Negative (Negative); Leukocyte Esterase Urine Negative (Negative); Nitrite Urine Negative (Negative); Protein Urine Negative (Negative); Specific Gravity Urine 1.014 (1.000-1.030); Urobilinogen Urine Negative (Negative)
[2023-11-05 11:51] LABS: Troponin I High Sensitivity 5.6 pg/ml (0-20)
[2023-11-05 12:00] LABS: Thyroid Stimulating Hormone 1.947 uIu/ml (0.300-4.500)
[2023-11-05] MEDS: hydrALAZINE HCL 20 MG/ML VIAL IV ONE ×3 (12:00→14:42)
--- NOTE | 2023-11-05 12:31 | XRay Report ---
XR chest 1V portable CLINICAL HISTORY: Chest pain. COMPARISON STUDY: Chest radiographs January 14, 2022. FINDINGS: Lung volumes are normal. Lungs are clear. There is no pneumothorax or pleural effusion. Car diac size is normal. Mediastinal contours are normal. There is no evidence for pulmonary edema. IMPRESSION: No acute cardiopulmonary findings. ACT 112: Negative or not required by law. Electronically signed by: Arthur Varghese M.D. 11/05/2023 12:30 PM
[2023-11-05] MEDS: FAMOTIDINE 20MG IV PUSH 20 MG/5 ML SYR IV STA (13:40)
[2023-11-05] MEDS: ACETAMINOPHEN 1,000 MG/100 ML VIAL IV STA (13:41)
--- NOTE | 2023-11-05 14:11 | History & Physical Report ---
Date of Service November 05, 2023 Assessment & Plan (1) Hypertensive urgency: (2) Uncontrolled hypertension: (3) Chest pain: Plan Kennedy Huerta is a 48y/o M with PMHx of dyslipidemia, untreated OLIVIER, HTN, CAD [on aspirin], morbid obesity and other problems listed below who presented to the ED secondary to being alerted of a significantly elevated BP reading in the outpatient setting. Patient has had ongoing, intermittent episodes of chest pain x 4 weeks. Patient also had an echocardiogram on 02/01/2022 per chart review that showed the following: "The qualitative LV ejection fraction is 55-59% (normal). No LV segmental wall motion abnormalities. The LV wall thickness is moderately increased (concentric). No significant valvular disease is present." Patient had Lexiscan nuclear stress testing done in April 2019 that was negative. Hypertensive Urgency Uncontrolled HTN Intermittent Chest Pain Patient's BP on arrival to the ED was 239/112. He received 2 doses of 5mg IV hydralazine in the ED prior to arriving at his bedside. Patient's BP was 193/135 upon my arrival to the ED. Ordered him an additional dose of 5 mg IV hydralazine [total of IV hydralazine = 15mg] and his BP came down to 150/103. Patient had an episode of severe chest pain and pressure in the ED after my arrival. Dr. Eleno weldon was also present in the room when this episode occurred. Patient became very tachypneic during this episode; he was placed on 2L of supplemental oxygen via non-rebreather, however his oxygen saturation never dropped. Patient ultimately received 3 doses of 0.4mg sublingual nitroglycerin while we were in the room. Patient reported some improvement of his chest pain/pressure with administration of those [address] Ashby popped into see the patient as well when this episode occurred. She ordered him PRN IV fentanyl for the chest pain as well. BP back down at 183/108 when last checked in the room ~3PM. Troponin 5.6 on admission, no ischemic changes on initial or repeat EKGs. Admitting CXR with no acute cardiopulmonary findings. Repeat troponin 6.6; trend troponin Q6H x 2. EKG with chest pain PRN, echo being performed in ED - follow results. Continue w/ PRN sublingual nitroglycerin, IV fentanyl, IV Zofran. CBC, BMP in AM. PRN 5mg IV hydralazine --> Administer for SBP>185 or DBP>105. HOLD if HR>100bpm. FIRST CHOICE. PRN 5mg IV labetalol --> Administer for SBP>185 or DBP>105. HOLD if HR<55bpm. SECOND CHOICE. Goal BP approximately 180/100 over the next 24 hours - communication order was placed to alert nursing staff. Cardiology was consulted, saw patient in ED before being transferred to PCU - Appreciate their recommendations/input. Continuous cardiac, pulse ox monitoring. Patient to continue with 2 L supplemental oxygen via NC for now - currently sating at 97%. Dyslipidemia Coronary Artery Disease (CAD) H/O 60% Proximal LAD Stenosis According to [facility], patient had a cardiac catheterization on 03/01/2022 that revealed the following: "Large, right-dominant system. Proximal LAD 60% stenosis. iFR 0.95 (not hemodynamically significant). Otherwise angiographically normal coronaries." Patient not currently on any statin regimen; will continue ASA. Per chart review, patient has a history of severe statin intolerance. Most recent lipid panel on 03/01/2022 --> Triglycerides 158, total cholesterol 177, HDL cholesterol 29 and LDL cholesterol 116. Fasting lipid panel in AM - Will need to reassess and coordinate with cardiology on potentially restarting cholesterol-lowering medications. Other Chronic Medical Conditions: * OLIVIER - Currently untreated per chart review. * GERD/Romero's Esophagus - Patient has followed with [facility] in the past. OF NOTE: Patient did mention "an intolerance to multiple BP medications in the past." According to a previous [facility] visit with John Ferguson on 06/03/2019 --> "It sounds as though he had issues with depression as well as erectile dysfunction with past use of beta-stephie therapy." Patient has also reportedly, according to chart review, "not tolerated HCTZ and clonidine." Patient had previously been on a regimen of clonidine, losartan and hydrochlorothiazide in the past per chart review - unsure of specific doses. DVT Prophylaxis: SCDs - For now. Code Status: FULL CODE PCP: Christian Hodges DO Dispo: Admit to PCU/Telemetry Patient seen in collaboration with Dr. Johansen. Please see addendum. I spent a total of 75 minutes coordinating, documenting, and providing care for this patient excluding time spent in the performance of separately billed services. This included personally reviewing all current laboratories and imaging studies, medical reconciliation, outpatient chart review and discussion with specialists. This chart was completed in part utilizing Speech Voice Recognition Software. Grammatical errors, random word insertions, pronoun errors, and incomplete sentences are an occasional consequence of this system due to software limitations, ambient noise, and hardware issues. Any formal questions or concerns about the content, text, or information contained within the body of this dictation should be directly addressed to the provider for clarification. History of Present Illness Chief Complaint: Chest Pain, HTN Primary Care Provider: DO Kennedy Pickard Deanna is a 48y/o M with PMHx of dyslipidemia, OLIVIER, HTN, CAD [on aspirin], morbid obesity and other problems listed below who presented to the ED secondary to being alerted of a significantly elevated BP reading in the outpatient ken gTom History obtained from patient and associated chart review. Patient was being seen at [facility] this morning when his BP was noted to be around 180/90; he was ultimately instructed to come here urgently to be seen. Patient is currently on losartan 100mg daily and amlodipine 5mg daily [according to chart review]. Patient's BP has been uncontrolled for "25 years." SBP has been running in the 100-200s when he's previously checked it at home. He does not routinely to check his BP at home. Troponin 5.6 on admission. Patient's BP on arrival to the ED was 239/112. He received 2 doses of 5mg IV hydralazine in the ED prior to arriving at his bedside. Patient's BP was 193/135 upon my arrival to the ED. Ordered him an additional dose of 5 mg IV hydralazine [total of IV hydralazine = 15mg] and his BP came down to 150/103. Patient had an episode of severe chest pain and pressure in the ED after my arrival. Dr. Eleno weldon was also present in the room when this episode occurred. Patient became very tachypneic during this episode; he was placed on 2L of supplemental oxygen via non-rebreather, however his oxygen saturation never dropped. Patient ultimately received 3 doses of 0.4mg sublingual nitroglycerin while we were in the room. Patient reported some improvement of his chest pain/pressure with administration of those [address] Ashby popped into see the patient as well when this episode occurred. She ordered him PRN IV fentanyl for the chest pain as well. BP back down at 183/108 when last checked in the room ~3PM. Was not really able to get a good history from the patient, as this episode occurred soon after my arrival to the ED and the patient was unable to communicate appropriately due to pain. But of note, patient did state "an intolerance to multiple BP medications in the past." According to a previous [facility] visit with John Ferguson on 06/03/2019 --> "It sounds as though he had issues with depression as well as erectile dysfunction with past use of beta-stephie therapy." Patient has also reportedly, according to chart review, "not tolerated HCTZ and clonidine." Patient had previously been on a regimen of clonidine, losartan and hydrochlorothiazide in the past per chart review - unsure of specific doses. Patient had Lexiscan nuclear stress testing done in April 2019 that was negative. Patient previously had chewed tobacco regularly, but stopped doing so approximately 2 years ago. Allergies Allergy/AdvReac Type Severity Reaction Status Date / Time lidocaine Allergy Unknown "SEVERE Verified 11/05/23 13:15 HIVES" meperidine Allergy Unknown EXTREMELY Verified 11/05/23 13:15 ILL Home Medications Medication Instructions Recorded Confirmed Type amlodipine 2.5 mg tablet 5 mg PO DAILY 11/05/23 11/05/23 History aspirin 81 mg tablet,delayed 81 mg PO QAM 11/05/23 11/05/23 History release losartan 100 mg tablet 100 mg PO QAM 11/05/23 11/05/23 History Past Med/Surg History Problem List (Updated 11/05/23 @ 16:14 by John Ferguson) Dyslipidemia, goal LDL below 70 Nonobstructive atherosclerosis of coronary artery Chest pain at rest Uncontrolled hypertension Hypertensive urgency Chest pain Hypertension (Acute) Medical History History of hypertension Romero's esophagus GERD (gastroesophageal reflux disease) CAD (coronary artery disease) Dyslipidemia OLIVIER (obstructive sleep apnea) Right ankle instability Right ankle pain Surgical History No pertinent past surgical history Family History Other Hypertension Social History Smoking Status: Former smoker Tobacco Type: Smokeless Tobacco (Dip or Chew) Age Quit Using Tobacco: 46; Preferred Language: Divehi Feels Safe at Home: Yes Review of Systems Review of Systems: At least ten systems reviewed and negative, except as noted in the HPI. Physical Exam Physical Exam: Please refer to Dr. Johansen's addendum for physical examination findings. Results & Data Results & Data Vital Signs (Past 12 Hours) Vital Signs Temp Pulse Resp BP Pulse Ox O2 Del Method 11/05/23 12:42 67 21 193/135 H 98 11/05/23 12:17 59 L 18 171/100 H 98 Room Air 11/05/23 12:15 61 18 166/111 H 99 Room Air 11/05/23 12:10 65 18 186/115 H 99 Room Air 11/05/23 12:05 67 20 167/110 H 99 Room Air 11/05/23 11:54 62 20 207/124 H 97 Room Air 11/05/23 11:03 60 11/05/23 11:00 64 20 228/129 H 99 Room Air 11/05/23 10:41 36.5 C 64 18 239/112 H 98 Room Air Laboratory Results Short CBC 11/05/23 Range/Units 10:54 WBC 4.78 L (4.8-10.8) K/ul Hgb 15.2 (14.0-18.0) g/dl Hct 43.6 (42.0-52.0) % Plt Count 237 (130-400) K/uL BMP 11/05/23 10:54 Sodium 136 Potassium 3.7 Chloride 102 Carbon Dioxide 31 BUN 13 Creatinine 0.77 Glucose 94 Calcium 9.2 Liver Function 11/05/23 Range/Units 10:54 Total Bilirubin 0.7 (0.2-1.0) mg/dl AST 16 (13-39) U/L ALT 19 (7-52) U/L Alkaline Phosphatase 44 (34-104) U/L Albumin 4.3 (3.4-5.0) gm/dl Urine 11/05/23 Range/Units 11:12 Urine Color Yellow Urine Appearance Clear (Clear) Urine pH 6.0 (4.5-7.5) Ur Specific [place] 1.014 (1.000-1.030) Urine Protein Negative (Negative) Urine Glucose (UA) Negative (Negative) Diagnostic Findings Chest X-Ray 11/05/23 11:11 XR chest 1V portable CLINICAL HISTORY: Chest pain. COMPARISON STUDY: Chest radiographs January 14, 2022. FINDINGS: Lung volumes are normal. Lungs are clear. There is no pneumothorax or pleural effusion. Cardiac size is normal. Mediastinal contours are normal. There is no evidence for pulmonary edema. IMPRESSION: No acute cardiopulmonary findings. ACT 112: Negative or not required by law. Electronically signed by: Arthur Varhgese M.D. 11/05/2023 12:30 PM Medications Administered Discontinued Medications Hydralazine HCl (Hydralazine Hcl 20 Mg/Ml Vial) 5 mg IV NOW ONE Stop: 11/05/23 11:40 Last Admin: 11/05/23 12:00 Dose: 5 mg Documented By: Hydralazine HCl (Hydralazine Hcl 20 Mg/Ml Vial) 5 mg IV NOW ONE Stop: 11/05/23 13:20 Last Admin: 11/05/23 13:40 Dose: 5 mg Documented By: Acetaminophen (Ofirmev) 1,000 mg in 100 mls @ 400 mls/hr IV NOW STA Stop: 11/05/23 13:19 Last Admin: 11/05/23 13:41 Dose: 400 mls/hr Documented By: Famotidine (Pepcid 20mg Iv Push) 20 mg in 5 mls @ 2.5 mls/min IV NOW STA Stop: 11/05/23 13:06 Last Admin: 11/05/23 13:40 Dose: 2.5 mls/min Documented By: MSG ECG Additional Comments: Initial EKG in ED revealed sinus bradycardia with heart rate 59bpm, minimal voltage criteria for LVH, and septal infarct of undetermined age. No acute evidence of ischemic changes. Repeat EKG in ED revealed NSR with heart rate 73bpm, but still no evidence of acute ischemic changes. Code Status & VTE Plan Code Status FULL CODE VTE Prophylaxis Plan VTE Prophylaxis will be ordered: Yes Supervising Physician Co-Signing Physician Notes 48-year-old male with PMH of HLD, untreated OLIVIER, HTN, CAD on aspirin, morbid obesity presented to the ED secondary to very high blood pressure noted in outpatient setting. Patient reports intermittent chest pain ongoing for several weeks. Patient had chest pain/pressure 3 times during taking H&P. He was given multiple doses of nitroglycerin and a dose of fentanyl with relief of chest pain. He was also given multiple doses of hydralazine to bring the blood pressure down. Labs fairly WNL with no evidence of acute organ injury. Troponin x 2 normal. EKG with no acute ST or T changes. Echo with no regional wall motion abnormality. Discussed with cardiology, plan to add topical nitrates and Coreg. Continue home telemetry monitoring. Plan for Lexiscan stress test tomorrow. As needed blood pressures medication with a goal of blood pressure around 180 / 100 mmHg today. Trend troponin. lipid profile in AM. NPO midnight. On examination: GENERAL: Alert and oriented x3. NAD. was put on NR briefly then to 2L NC O2 since he had chest pressure while at bedside eval. Obese classIII. HEENT: No pallor, no icterus. Pupils equal, round and reactive to light. Oral mucosa moist. NECK: No JVD, no neck masses. HEART: S1 and S2 heard. Regular rate and rhythm. No murmur, no gallop. RESPIRATORY SYSTEM: Normal AP diameter. No accessory muscle use. No wheezing, no crackles. ABDOMEN: Soft, bowel sounds present, nontender, no distention. CENTRAL NERVOUS SYSTEM: No facial droop. Speech is clear. Obeys simple commands. Moves extremities. EXTREMITIES: No edema, no erythema seen. I have seen and examined the patient and have discussed the case with the provider above. I agree with the assessment and plan as stated. (3) Chest pain Chest pain type: unspecified Qualified Code(s): R07.9 - Chest pain, unspecified
[2023-11-05] MEDS: NITROGLYCERIN SL 0.4 MG/TAB TAB ONE ×2 (14:42→14:48)
[2023-11-05] MEDS: fentaNYL citrate PF 100 MCG/2 ML VIAL IV PRN (14:56)
[2023-11-05] MEDS ORDERED: NITROGLYCERIN SL 0.4 MG/TAB TAB SL PRN ×2 (15:07→16:55)
[2023-11-05] MEDS: PERFLUTREN LIPID MICROSPHERE (DEFINITY) IV ONE (15:17)
--- NOTE | 2023-11-05 15:49 | Cardiology Consultation ---
Date of Consultation November 05, 2023 Assessment & Plan (1) Hypertensive urgency: (2) Chest pain at rest: (3) Uncontrolled hypertension: (4) Nonobstructive atherosclerosis of coronary artery: (5) Dyslipidemia, goal LDL below 70: Plan Add Nitro paste 1" Q6 hours Add carvedilol 3.125 mg twice a day Continue Losartan at 100 mg/day Continue amlodipine at 10 mg/day NPO after midnight for potential Lexiscan nuclear stress testing in AM. Continue Aspirin I spent a total of 68 minutes on the date of service in preparation, delivery, and documentation of the care provided to this patient excluding any time spent in the performance of separately billed services. This visit was a split-shared visit with the substantive portion of the medical decision making performed by the supervising lumber stacker/billing provider. Supervising Physician Co-Signing Physician Notes I have personally performed a history and physical examination on the patient. I have reviewed the advance practitioner's documentation, and I agree with, and take responsibility for the plan of care. 48-year-old male admitted with hypertensive urgency and chest discomfort. ECG without ischemic changes. High-sensitivity troponin negative x 2 sets despite nearly 3 weeks of intermittent discomfort. Cardiac catheterization performed 2021 with moderate, nonobstructive CAD. Bedside echocardiogram demonstrates hypertensive heart disease, left ventricular hypertrophy, without regional wall motion abnormality. Recommend medical management as detailed above. Add carvedilol and topical nitrates. Continue losartan and amlodipine. N.p.o. except medications after midnight. Consider pharmacologic stress testing in a.m. pending assessment. I spent a total of 40 minutes on the date of service in preparation, delivery, and documentation of the care provided to this patient, excluding any time spent in the performance of separately billed services. Jose Fenton DO, [facility] History of Present Illness Reason for Consultation: Chest pain/pressure, hypertensive urgency Requesting Physician: No Pyle Attending Physician: No Pyle History of Present Illness Mr. Kennedy Huerta is a 48 year old male who was been experiencing chest discomfort for the last 3-4 weeks. Patient notes seeing nutrition and weight management earlier today, with uncontrolled hypertension observed at that time. Patient notes asking the provider for an EKG and being advised to report to the ER for further evaluation and treatment. Blood pressure on initial presentation to the ER was 239/112. Patient received multiple doses of IV hydralazine in the ER with improvement in BP. During ER evaluation patient experienced severe chest pain associated with electricity feelings down the left arm. Supplemental oxygen via nonrebreather was administered along with 3 doses of sublingual nitroglycerin and IV Fentanyl with improvement. Initial EKG revealed sinus bradycardia at 59 bpm with LVH, possible old septal infarct. A second EKG in the midst of the chest pain episode in the ER revealed sinus rhythm at 73 bpm, without acute ST segment change. High-sensitivity troponin negative x 2 at 5.6 then 6.6 pg/mL. Chest x-ray without acute cardiopulmonary findings. ER telemetry without arrhythmia. Patient works in the [employer] industry though has been less active over the last few months. He notes weight gain despite weight loss medication as well as increased exertional dyspnea with associated chest tightness when ambulating through the hughes. No resting or nocturnal dyspnea. No palpitations. No orthopnea or PND. No lower extremity peripheral edema unless experiencing a gout flare. No headaches or unilateral complaints. No dizziness or lightheadedness. No syncope. No fevers or chills. No rash or tick bites. No melena or hematochezia. Patient with past poor tolerance to thiazide diuretics, clonidine, and beta- stephie therapy. Prior to arrival medications include losartan 50 mg/day and amlodipine 10 mg/day. Problem List Nonobstructive coronary artery disease Hypertension, hypertensive heart disease Dyslipidemia Obesity Untreated obstructive sleep apnea Family history of premature ischemic heart disease History of closed head injury, traumatic brain injury Romero's esophagus GERD Prior smokeless tobacco use/abuse, quitting in 2021 Sciatica Vitamin-D deficiency Insomnia Inguinal hernia Gout Anxiety Migraine headaches Arthroscopic bilateral knee surgery EKG with Barretts Colonoscopy with adenomatous polypectomy, diverticulosis Right shoulder surgery. Hernia surgery Vasectomy Family History: Father with premature coronary artery disease, atrial fibrillation, pacemaker. Paternal grandmother and father with CAD. Maternal grandmother with CAD. Social History: Nonsmoker. Prior chronic smokeless tobacco use/abuse until 2021/ Herbal snuff from 2021 to October 2023. No significant alcohol use/abuse. No illegal drug use. BS degree in Secondary Education. 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 , 2nd , 13 years today. Three children ages 14, 9, and 8. Allergies Allergy/AdvReac Type Severity Reaction Status Date / Time lidocaine Allergy Unknown "SEVERE Verified 11/05/23 13:15 HIVES" meperidine Allergy Unknown EXTREMELY Verified 11/05/23 13:15 ILL Home Medications Medication Instructions Recorded Confirmed Type amlodipine 2.5 mg tablet 5 mg PO DAILY 11/05/23 11/05/23 History aspirin 81 mg tablet,delayed 81 mg PO QAM 11/05/23 11/05/23 History release losartan 100 mg tablet 100 mg PO QAM 11/05/23 11/05/23 History Patient History Medical History History of hypertension Romero's esophagus GERD (gastroesophageal reflux disease) CAD (coronary artery disease) Dyslipidemia OLIVIER (obstructive sleep apnea) Right ankle instability Right ankle pain Surgical History No pertinent past surgical history Family History Other Hypertension Social History Smoking Status: Former smoker Tobacco Type: Smokeless Tobacco (Dip or Chew) Age Quit Using Tobacco: 46; Preferred Language: Maltese Feels Safe at Home: Yes Review of Systems Review of Systems: Complete Review of Systems is as stated above, negative, or noncontributory. Physical Exam Physical Exam: General: A&Ox3. NAD. Elevated BMI HENT: Normocephalic. Atraumatic. Eyes: PER. Conjunctiva pink, sclera injected Neck: No carotid bruits. No JVD. No HJR. Heart: RRR, 74 bpm. Grade I-II systolic murmur. No diastolic murmur. No rub. No gallop. PMI is nondisplaced. Lungs: Clear to auscultation. Abdomen: +BS. Soft. Nontender. No masses or organomegaly. Extremities: No clubbing, cyanosis, or edema. Limited neurological examination is without focal deficits. Pulses: radial=2/4, posterior tibial=2/4. Results & Data Vital Signs (Past 12 Hours) Vital Signs Temp Pulse Resp BP Pulse Ox O2 Del Method O2 Flow Rate 11/05/23 15:00 78 20 183/108 H 97 Nasal Cannula 2 11/05/23 14:47 133 H 24 150/106 H 98 Non-rebreather 15 11/05/23 14:36 72 18 223/116 H 98 Nasal Cannula 2 11/05/23 14:01 72 20 168/94 H 97 Room Air 11/05/23 13:45 65 20 195/107 H 97 Room Air 11/05/23 13:30 73 20 175/121 H 98 Room Air 11/05/23 12:42 67 21 193/135 H 98 11/05/23 12:17 59 L 18 171/100 H 98 Room Air 11/05/23 12:15 61 18 166/111 H 99 Room Air 11/05/23 12:10 65 18 186/115 H 99 Room Air 11/05/23 12:05 67 20 167/110 H 99 Room Air 11/05/23 11:54 62 20 207/124 H 97 Room Air 11/05/23 11:03 60 11/05/23 11:00 64 20 228/129 H 99 Room Air 11/05/23 10:41 36.5 C 64 18 239/112 H 98 Room Air Laboratory Results Cardiac Enzymes 11/05/23 11/05/23 Range/Units 10:54 14:52 AST 16 (13-39) U/L Troponin I High Sens 5.6 6.6 (0-20) pg/ml Coagulation 11/05/23 Range/Units 10:54 PT 10.8 (9.0-12.0) Seconds CBC 11/05/23 Range/Units 10:54 WBC 4.78 L (4.8-10.8) K/ul RBC 5.32 (4.70-6.10) M/uL Hgb 15.2 (14.0-18.0) g/dl Hct 43.6 (42.0-52.0) % Plt Count 237 (130-400) K/uL Neut # (Auto) 2.33 (1.40-6.50) K/uL Lymph # (Auto) 1.81 (1.20-3.40) K/uL [place] # (Auto) 0.50 (0.11-0.59) K/uL Eos # (Auto) 0.10 (0.00-0.50) K/uL Baso # (Auto) 0.02 (0.00-0.20) K/uL Comprehensive Metabolic Panel 11/05/23 Range/Units 10:54 Sodium 136 (136-145) mmol/L Potassium 3.7 (3.5-5.1) mmol/L Chloride 102 (98-107) mmol/L Carbon Dioxide 31 (21-32) mmol/L BUN 13 (6-23) mg/dl Creatinine 0.77 (0.6-1.4) mg/dl Glucose 94 (70-99(Fasting)) mg/dl Calcium 9.2 (8.6-10.3) mg/dl AST 16 (13-39) U/L ALT 19 (7-52) U/L Alkaline Phosphatase 44 (34-104) U/L Total Protein 7.4 (6.0-8.3) gm/dl Albumin 4.3 (3.4-5.0) gm/dl Intake and Output 11/05/23 11/05/23 11/05/23 06:59 14:59 22:59 Intake Total 100 / 100 Balance 100 / 100 Intake: IV 100 / 100 Acetaminophen 1,000 mg In 100 100 / 100 ml @ 400 mls/hr IV NOW STA Rx#: [id number] Other: Weight 125 kg Weight Measurement Method Chair Scale Patient Weight 11/06/23 06:59 Weight 125 kg Diagnostic Findings Data: Lexiscan nuclear stress testing done in April 2019 that was negative. February 01, 2022 TTE: The qualitative LV ejection fraction is 55-59% (normal). No LV segmental wall motion abnormalities. The LV wall thickness is moderately increased (concentric). No significant valvular disease is present. March 01, 2022 Coronary Angiography: Large, right-dominant system. Proximal LAD 60% stenosis. iFR 0.95 (not hemodynamically significant). Otherwise angiographically normal coronaries
[2023-11-05] MEDS ORDERED: ALUMINUM/MAGNESIUM SUSP 30 ML UDC PO PRN (16:49)
[2023-11-05] MEDS ORDERED: LABETALOL HCL IV 5 MG/ML 20ML IV PRN (16:49)
[2023-11-05] MEDS ORDERED: MAGNESIUM HYDROXIDE SUSP 30 ML UDC PO PRN (16:49)
[2023-11-05] MEDS ORDERED: POLYETHYLENE (MIRALAX) 17 GM PACK PO PRN (16:49)
[2023-11-05] MEDS ORDERED: NITROGLYCERIN 0.3 MG/1 TAB 100 TAB BTL SL PRN (16:49)
[2023-11-05] MEDS: carvediloL 3.125 MG TAB PO SCH (18:12)
[2023-11-05] MEDS: NITROGLYCERIN 2% OINTMENT 30GM TUBE EXT SCH (18:16)
[2023-11-05] MEDS: ACETAMINOPHEN 325 MG TAB PO PRN (20:06)
[2023-11-05] MEDS: ONDANSETRON INJ 2 MG/ML 2 ML VIAL IV PRN (20:07)
[2023-11-05] MEDS: hydrALAZINE HCL 20 MG/ML VIAL IV PRN (21:23)
[2023-11-05] MEDS ORDERED: PROMETHAZINE HCL 12.5 MG in SODIUM CHLORIDE 0.9% 50 ML IV PRN (21:25)
[2023-11-05] MEDS ORDERED: oxyCODONE HCL IR 5 MG TAB (IMMEDIATE RELEASE) PO PRN (21:31)
--- NOTE | 2023-11-05 21:34 | Communication Note ---
Date of Service: November 05, 2023 Patient complaining of worst headache as per RN. SBP 170s. Ap Headache Uncontrolled hypertension Nitropaste Rx CT head Extra amlodipine DC Nitropaste
[2023-11-05] MEDS: oxyCODONE HCL IR 5 MG TAB (IMMEDIATE RELEASE) PO STA (21:43)
[2023-11-05] MEDS: PROMETHAZINE HCL 12.5 MG in SODIUM CHLORIDE 0.9% 50 ML IV STA (21:54)
[2023-11-05] MEDS: HYDROCODONE/ACETAMOPHEN 5/325MG TAB PO PRN (21:56)
[2023-11-05] MEDS: amLODIPine BESYLATE 5 MG TAB PO ONE (23:26)
--- NOTE | 2023-11-06 01:31 | CT Scan Report ---
Exam(s): CT HEAD Without Contrast EXAM: CT Head Without Intravenous Contrast CLINICAL HISTORY: Reason for exam: boykin. TECHNIQUE: Axial computed tomography images of the head/brain without intravenous contrast. CTDI is 35.65 mGy and DLP is 624.41 mGy-cm. Automated exposure control was utilized for the study. A dose lowering technique was utilized adhering to the principles of ALARA. COMPARISON: No relevant prior studies available. FINDINGS: Brain: Unremarkable. No hemorrhage. No significant white matter disease. No edema. Ventricles: Unremarkable. No ventriculomegaly. Bones/joints: Unremarkable. No acute fracture. Soft tissues: Unremarkable. Sinuses: Unremarkable as visualized. No acute sinusitis. Mastoid air cells: Unremarkable as visualized. No mastoid effusion. IMPRESSION: No evidence of acute intracranial pathology. Electronically signed by: Terri Abdul MD 11/06/23 01:29 AM
[2023-11-06 02:39] LABS: Hematocrit (blood only) 42.1 % (42.0-52.0); Hemoglobin 14.7 g/dl (14.0-18.0); Mean Corpuscular Hemoglobin 28.7 pg (25.0-34.0); Mean Corpuscular Hgb Conc 34.9 g/dL (32.0-36.0); Mean Corpuscular Volume 82.1 fL (80.0-100.0); Platelet Count 220 K/uL (130-400); RDW Coefficient of Variation 14.9 % (11.5-14.5); RDW Standard Deviation 44.3 fL (36.4-46.3); Red Blood Count 5.13 M/uL (4.70-6.10); White Blood Count 7.84 K/ul (4.8-10.8)
[2023-11-06 02:52] LABS: BUN Creatinine Ratio 15.8 (10-20); Calcium 8.4 mg/dl (8.6-10.3); Chol HDL Ratio 5.4 (0-5); Est GFR (African American) 110.8 ml/min; Est GFR (Non-African American) 95.6 ml/min
[2023-11-06] MEDS ORDERED: amLODIPine BESYLATE 5 MG TAB PO SCH (09:00)
[2023-11-06] MEDS: ASPIRIN 81 MG ECTAB PO SCH (09:03)
--- NOTE | 2023-11-06 09:19 | Cardiology Progress Note ---
Date of Service November 06, 2023 Assessment & Plan (1) Hypertensive urgency: (2) Chest pain at rest: (3) Uncontrolled hypertension: (4) Nonobstructive atherosclerosis of coronary artery: (5) Dyslipidemia, goal LDL below 70: Plan 1. Increase carvedilol to 6.25 mg twice a day 2. Trial torsemide 5 mg/day along with spironolactone 12.5 mg/day. 3. Continue losartan 100 mg/day 4. Continue amlodipine 10 mg/day 5. Past poor tolerance to thiazide diuretics (history of gout) and clonidine reported 6. Refer for Lexiscan nuclear stress testing 7. Nonpharmacologic treatments of hypertension discussed. 8. Weight loss urged along with treatment of obstructive sleep apnea. 9. Continue Aspirin 10. Retry after confirming tolerance to the above. 11. ? Underlying generalized anxiety, and need for treatment. I spent a total of 40 minutes on the date of service in preparation, delivery, and documentation of the care provided to this patient excluding any time spent in the performance of separately billed services. This visit was a split-shared visit with the substantive portion of the medical decision making performed by the supervising pals specialist/billing provider. Admission and Anticipated Discharge Date Admission Date: November 05, 2023 Supervising Physician Co-Signing Physician Notes I have personally performed a history and physical examination on the patient. I have reviewed the advance practitioner's documentation, and I agree with, and take responsibility for the plan of care. 48-year-old male admitted with hypertensive urgency and chest discomfort. ECG without ischemic changes. High-sensitivity troponin negative x 3. Cardiac catheterization performed 2021 with moderate, nonobstructive CAD. Bedside echocardiogram demonstrates hypertensive heart disease, left ventricular hypertrophy, without regional wall motion abnormality. Blood pressure improving with adjustment of antihypertensive therapies. Carvedilol, torsemide, and spironolactone added. Proceed with Lexiscan nuclear stress testing today. Further recommendations pending review. I spent a total of 30 minutes on the date of service in preparation, delivery, and documentation of the care provided to this patient, excluding any time spent in the performance of separately billed services. Jose Fenton DO, [facility] Subjective Patient seen and examined. Chart, medications, telemetry reviewed. Significant headache associated with nausea and emesis overnight. Nitro paste discontinued with improvement. CT of the head negative. Recurrent chest pain overnight. EKG without acute ST segment change, revealing normal sinus rhythm at 63 bpm High-sensitivity troponin negative x 4 at 5.6 -> 6.6 -> 9.5 -> 7.3 pg/mL November 05, 2023 TTE Normal LV systolic function. EF 65 to 70%. Moderate concentric LVH. Normal LV wall motion. Grade 1 diastolic dysfunction. No significant valvular pathology. Telemetry: Sinus with heart rates into the 50s overnight, currently sinus in the 70s. Review of Systems Review of Systems: Complete Review of Systems is as stated above, negative, or noncontributory. Physical Exam Physical Exam: General: A&Ox3. NAD. Elevated BMI HENT: Normocephalic. Atraumatic. Eyes: PER. Conjunctiva pink, sclera injected Neck: No carotid bruits. No JVD. No HJR. Heart: RRR, 70 bpm. Grade I-II systolic murmur. No diastolic murmur. No rub. No gallop. PMI is nondisplaced. Lungs: Clear to auscultation. Abdomen: +BS. Soft. Nontender. No masses or organomegaly. Extremities: No clubbing, cyanosis, or edema. Limited neurological examination is without focal deficits. Pulses: radial=2/4, posterior tibial=2/4. Results & Data Vital Signs (Past 12 Hours) Vital Signs Temp Pulse Pulse Resp BP Pulse Ox O2 Del Method 11/06/23 08:01 36.7 C 77 18 170/100 H 98 Room Air 11/06/23 03:15 36.6 C 58 L 16 126/71 96 Room Air 11/05/23 22:36 36.5 C 89 18 179/96 H 98 Room Air 11/05/23 22:04 60 11/05/23 21:18 64 176/105 H Laboratory Results Cardiac Enzymes 11/05/23 11/05/23 11/05/23 Range/Units 10:54 14:52 20:35 AST 16 (13-39) U/L Troponin I High Sens 5.6 6.6 9.5 (0-20) pg/ml 11/06/23 Range/Units 02:24 AST (13-39) U/L Troponin I High Sens 7.3 (0-20) pg/ml Coagulation 11/05/23 Range/Units 10:54 PT 10.8 (9.0-12.0) Seconds Lipids 11/06/23 Range/Units 02:24 Triglycerides 209 H (0-150) mg/dl Cholesterol 220 H (0-200) mg/dl HDL Cholesterol 41 mg/dl Cholesterol/HDL Ratio 5.4 H (0-5) CBC 11/05/23 11/06/23 Range/Units 10:54 02:24 WBC 4.78 L 7.84 (4.8-10.8) K/ul RBC 5.32 5.13 (4.70-6.10) M/uL Hgb 15.2 14.7 (14.0-18.0) g/dl Hct 43.6 42.1 (42.0-52.0) % Plt Count 237 220 (130-400) K/uL Neut # (Auto) 2.33 (1.40-6.50) K/uL Lymph # (Auto) 1.81 (1.20-3.40) K/uL [place] # (Auto) 0.50 (0.11-0.59) K/uL Eos # (Auto) 0.10 (0.00-0.50) K/uL Baso # (Auto) 0.02 (0.00-0.20) K/uL Comprehensive Metabolic Panel 11/05/23 11/06/23 Range/Units 10:54 02:24 Sodium 136 135 L (136-145) mmol/L Potassium 3.7 4.0 (3.5-5.1) mmol/L Chloride 102 102 (98-107) mmol/L Carbon Dioxide 31 28 (21-32) mmol/L BUN 13 15 (6-23) mg/dl Creatinine 0.77 0.95 (0.6-1.4) mg/dl Glucose 94 105 H (70-99(Fasting)) mg/dl Calcium 9.2 8.4 L (8.6-10.3) mg/dl AST 16 (13-39) U/L ALT 19 (7-52) U/L Alkaline Phosphatase 44 (34-104) U/L Total Protein 7.4 (6.0-8.3) gm/dl Albumin 4.3 (3.4-5.0) gm/dl Intake and Output 11/05/23 11/06/23 11/06/23 22:59 06:59 14:59 Intake Total 50.5 / 150.5 Balance 50.5 / 150.5 Intake: IV 50.5 / 150.5 Promethazine HCl 12.5 mg In 50.5 / 50.5 Sodium Chloride 0.9% 50 ml @ 202 mls/hr IV NOW STA Rx#: [id number] Other: Other Intake Source Patient is NPO # Unmeasured Voids 1 Weight 125 kg Weight Measurement Method Standing Scale
[2023-11-06] MEDS ORDERED: hydrOXYzine HCl 25 MG TAB PO PRN (09:59)
--- OUTSIDE RECORDS SUMMARY | 2023-11-06 13:16 | External Medical Summary | Summary of Care ---
Author Name Unknown Organization [facility] Address [address] [address] Phone [phone] Care Team Providers Care Pigs Feet Cleaner Name Role Phone Christian Hodges OD Primary Care Provider [phone] Reason for Visit * Reason Comments Weight Management Patient states he is here to follow up regarding weight loss Encounter Details Date Type Department Care Team (Late st Contact Info) Description 11/05/2023 9:20 AM EDT Office Visit Nutrition & Weight Management, [facility] [address] [place] [address] Madison Duron PA-C [address] [place] [address] Morbid obesity due to excess calories (HCC)* Allergies Active Allergy Reactions Criticality Noted Date Comments Demerol Unknown 01/05/2010 Lidocaine 11/19/2016 Hives documented as of this encounter (statuses as of 11/05/2023) Medications Medication Sig Dispensed Refills Start Date End Date Status Aspirin EC 81 MG Oral Tablet Delayed Release Take 1 Tablet by mouth in the morning. 90 Tablet 3 3 Active Losartan Potassium 50 MG Oral Tablet (Cozaar) Take 1 Tablet by mouth in the morning. 90 Tablet 3 3 Active amLODIPine Besylate 5 MG Oral Tablet (Norvasc) Take 1 Tablet by mouth in the morning. Patient unsure if 5mg is correct dosage . Active Zepbound 2.5 MG/0.5ML Subcutaneous Solution Auto-injector (Tirzepatide-Prasad ght Management)Indic ations:Morbid obesity due to excess calories (HCC) Inject 2.5 mg under the skin once a week. 2 mL 5 4 Active Vitamin D (Ergocalciferol) 1.25 MG (11155 UT) Oral Capsule Take by mouth once a week. 2 11/05/19 24 Discontinued Saxenda 18 MG/3ML Subcutaneous Solution Pen-injector (Liraglutide -Weight Management)Indic ations:Class 2 severe obesity due to excess calories with serious comorbidity and body mass index (BMI) of 37.0 to 37.9 in adult (HCC) Titrate up starting with 0.6 mg subcutaneous daily, increasing by 0.6 mg weekly until a target dose of 3mg 45 mL 1 3 11/05/19 24 Discontinued Insulin Pen Needle 32G X 6 MMIndications:Cl ass 2 severe obesity due to excess calories with serious comorbidity and body mass index (BMI) of 37.0 to 37.9 in adult (HCC) Use with Saxenda pen 50 Each 2 3 11/05/19 24 Discontinued(Med ication List Clean Up) documented as of this encounter (statuses as of 11/05/2023) Active Problems Problem Noted Date Diagnosed Date Coronary artery disease invo lving ute mountain coronary artery of ute mountain heart without angina pectoris 07/24/2022 Body mass index (BMI) of 40.0 to 44.9 in adult 1 Overview: Per Obesity protocol HTN, goal to be determined 01/25/2022 Overview: Uncontrolled over years Morbid obesity due to excess calories 01/25/2022 OLIVIER (obstructive sleep apnea) 01/25/2022 Overview: Untreated Dyslipidemia, goal LDL below 130 01/05/2010 Chest pain 01/05/2010 Obesity, Class I, BMI 30.0-34.9 (see actual BMI) 01/05/2010 documented as of this encounter (statuses as of 11/05/2023) Resolved Problems Problem Noted Date Diagnosed Date Resolved Date Unstable angina 03/01/2022 03/01/2022 Chest pain, non-cardiac 01/25/202202/04 documented as of this encounter (statuses as of 11/05/2023) Social History Tobacco Use Types Packs/Day Years Used Date Smoking Tobacco: Former Smokeless Tobacco: Former Chew Quit: 01/22/2003 Alcohol Use Standard Drinks/Week Comments Yes 0 (1 standard drink = 0.6 oz pur e alcohol) 1 drink every few weeks Utilities Answer Date Recorded Do you have trouble paying y our heating, water, or electric bill? (Adult - for ages 18 years and over) Not on file 10/22/2023 Is your family able to pay t he heat, water, or electric bill? (Household - for ages 0-17 years) Not on file 10/22/2023 Does your family have access to good internet? (Household - for ages 0-17 years) Not on file 10/22/2023 Social Connections Answer Date Recorded How often do you feel lonely or isolated from those around you? (Adult - for ages 18 years and over) Not on file 10/22/2023 Sex and Gender Information Value Date Recorded Sex Assigned at Not on file Gender Identity Not on file Sexual Orientation Not on file Job Start Date Occupation Industry Not on file Not on file Not on file documented as of this encounter Last Filed Vital Signs Vital Sign Reading Time Taken Comments Blood Pressure 180/94 11/05/2023 9:21 AM EDT rec heck Pulse 73 11/05/2023 9:14 AM EDT Temperature 36.8 C (98.2 F) 11/05/2023 9:14 AM ED T Respiratory Rate - - Oxygen Saturation 96% 11/05/2023 9:14 AM EDT Inhaled Oxygen Concentration - - Weight 124.7 kg (275 lb) 11/05/2023 9:21 AM EDT Height 175.3 cm (5' 9") 11/05/2023 9:21 AM EDT Body Mass Index 40.61 11/05/2023 9:21 AM EDT documented in this encounter Functional Status Functional Status Response Date of Assess ment Are you deaf or do you have serious difficulty h earing? No 03/01/2022 Are you blind or do you have serious difficulty seeing, even when wearing glasses? No 03/01/2022 Do you have serious difficul ty walking or climbing stairs? (5 years old or older) No 03/01/2022 Do you have difficulty dress ing or bathing? (5 years old or older) No 03/01/2022 Because of a physical, menta l, or emotional condition, do you have difficulty doing errands alone such as visiting a doctor s office or shopping? (15 years old or older) No 03/01/20 Cognitive Status Response Date of Assessm ent Because of a physical, menta l, or emotional condition, do you have serious difficulty concentrating, remembering, or making decisions? (5 years old or older) No 03/01/2022 documented as of this encounter Progress Notes * Madison Duron PA-C - 11/05/2023 9:26 AM EDT Comprehensive [facility] Management Clinic Note Nursing Notes: Stormy Campos RN 11/05/23 0922 Signed Chief Complaint Patient presents with Weight Management Patient states he is here to follow up regarding weight loss Kennedy Huerta presents in follow up to the comprehensive weight management clinic. The patient is a 48 year old male Wt Readings from Last 6 Encounters: 11/05/23 124.7 kg (275 lb) 04/05/23 116.1 kg (256 lb) 07/24/22 107.6 kg (237 lb 3.2 oz) 07/23/22 105.5 kg (232 lb 9.6 oz) 05/23/22 107.4 kg (236 lb 11.2 oz) 03/01/22 120.5 kg (265 lb 8.7 oz) Patient is receiving ongoing education regarding dietary and physical modifications for weight loss. - Initial clinic visit 01/26/22. Weight 298 lbs Height 69" Body mass index is 44.01 kg/m. - Today's weight: 275 lbs - Total weight loss of -23lbs since initial weight in clinic - Patient's last follow up with GI/Nutrition clinic was on 04/05/23. - The patient's weight has +19 lbs since the last visit 11/05/23 -off Saxenda - felt like it wasn't working -felt more hungry -wants to talk about other medication options -dad and sister had MBS -complains of chest pain, left arm pain today - BP elevated, taking antihypertensives, ASA 04/05/23 -off Saxenda - he tried 1 dose Wegovy 1.7mg and had nausea/vomiting -frustrated with weight increase -best friend recently diagnosed with ALS -off all antihypertensives, statin, ASA - ran out -had sleep study - positive for OLIVIER - working on getting CPAP 07/23/22 -still on Saxenda 3.0mg -feels hungry all the time -quit chewing snuff after 30 years 05/23/22 -had cardiac catheterization in the interim -he has since stopped his statin and ASA -had maintained on Saxenda 0.6mg for several months, and just recently started titrating up - now at 1.8mg daily -following with a aquatics lifeguard -has cut back on chewing to 1 chew per day (was over 1 can per day) Today's Visit 01/26/22 - Overall goal: lose about 100 pounds. Per pt, Cardiology doesn't think he would be a good candidate for surgery due to his blood pressure. - Wt hx: really gained weight after 42 years old - Lowest wt as adult: 180 Patient Active Problem List Diagnosis Dyslipidemia, goal LDL below 130 Chest pain Obesity, Class I, BMI 30.0-34.9 (see actual BMI) HTN, goal to be determined Morbid obesity due to excess calories (HCC) OLIVIER (obstructive sleep apnea) Body mass index (BMI) of 40.0 to 44.9 in adult (HCC) Coronary artery disease involving ute mountain coronary artery of ute mountain heart without angina pectoris Review of Systems: Review of Systems Constitutional: Negative for diaphoresis and fatigue. Respiratory: Negative for chest tightness and shortness of breath. Cardiovascular: Positive for chest pain. Negative for palpitations and leg swelling. Gastrointestinal: Negative for abdominal pain, constipation, diarrhea, nausea and vomiting. Neurological: Negative for dizziness, syncope, light-headedness and headaches. All other systems reviewed and are negative. Current Medications: Current Outpatient Medications Medication Sig Dispense Refill Aspirin EC 81 MG Oral Tablet Delayed Release Take 1 Tablet by mouth in the morning. 90 Tablet 3 Losartan Potassium 50 MG Oral Tablet (Cozaar) Take 1 Tablet by mouth in the morning. 90 Tablet 3 amLODIPine Besylate 5 MG Oral Tablet (Norvasc) Take 1 Tablet by mouth in the morning. Patient unsure if 5mg is correct dosage . Zepbound 2.5 MG/0.5ML Subcutaneous Solution Auto-injector (Tirzepatide-Weight Management) Inject 2.5 mg under the skin once a week. 2 mL 5 No current facility-administered medications for this visit. 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 Patient is well appearing and in no acute distress. Skin: No rashes. HEENT: Head is atraumatic, normocephalic. EOMs intact Abdomen: Obese Neuro: No focal deficits Psych: Appropriate mood and affect. Assessment and Plan: Abnormal weight gain / Body mass index is 40.61 kg/m. / Class I obesity: - Would like to proceed with medical management - Barriers are consistency. - Motivators are feeling better overall, avoiding/reducing co-morbid conditions. - The patient was encouraged to to avoid all fruit juices and regular sodas, consume at least 64 ounces of water per day, keep food logs and get weighed on a weekly basis. They were encouraged to increase physical activity as prescribed. - Handouts regarding nutrition and physical activity were provided, as appropriate. 1. Keep a food log. If you bite it, write it! Apps like [employer] or [employer] Calorie goal: 1999 2. Drink 48-64 ounces of non-caloric beverages per day. No fruit juices or regular soda Try crystal light, propel, zero calorie flavored water, plain water 3. Goal of 30 minutes of exercise 5 days per week (150 minutes per week--can be divided up however you would like) Aim for aerobic activity and muscle strengthening activities 4. Increase fruit and vegetable servings to 5-6 per day. 1/2 of your plate should be fruits and vegetables 5. Eat 100-200 calories within 1-2 hours of awakening, and every 4 - 6 hours while awake. (3 meals with snacks in between) Choose 100 calorie or less snacks, protein snacks 7. Weight yourself weekly and follow trend over time (day to day weight fluctuations can be discouraging) 8. Decrease starches like bread, pasta, cereal, potatoes and corn. Aim for of your plate Try substitutions like zoodles, lentil pasta, cauliflower mashed potatoes, whole grain foods, quinoa Limit junk/processed foods Chips, pretzels, cookies, cakes, sweets White bread/rolls/wraps/bagels, white rice 9. Increase protein to feel full longer (1/4 of your plate) Kennedy was seen today for weight management. Diagnoses and all orders for this visit: Morbid obesity due to excess calories (HCC) - Zepbound 2.5 MG/0.5ML Subcutaneous Solution Auto-injector (Tirzepatide-Weight Management); Inject2.5 mg under the skin once a week. 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 -pt stopped pantoprazole Coronary artery disease involving ute mountain coronary artery of ute mountain heart without angina pectoris -pt stopped statin, taking ASA -having chest pain, left arm pain today - patient asking for a EKG "just to check" -I advised the patient to go to the ER for evaluation - he declined an ambulance -we discussed that he could still be having an WA or other cardiac related issue even with a normalEKG and needs further workup Tobacco abuse -quit chewing Possibility of bariatric surgery - pt is interested in bariatric surgery - pt qualifies for bariatric surgery based on BMI >40 or BMI >35 with obesity related comorbidity (Body mass index is 40.61 kg/m.) -pre bariatric surgery program reviewed and packet given to patient - pt will need to call insurance company to see if bariatric surgery is a covered benefit -Enroll in bariatric surgery program. -Discussed details of program with patient in clinic today, including (but not limited to) program fee; attending 2 support groups and 3 educational classes; Behavioral Medicine evaluation; Assembler Rubber Footwear evaluation; medical evaluation; monthly visits; and 10% weight loss goal. - Discussed importance of eating 3 regular meals/day with a focus on protein. Reviewed healthy snacks and provided list. Educated about MyPlate and portion sizes. Pt is to work on these items betweennow and next visit. Given the patient's age, degree of obesity and multiple medical problems outlined above, I do believe that bariatric surgery may prove beneficial. Discussed with patient the risks and benefits of rygb,vsg. The patient is interested in bariatric surgery and will begin our presurgical process. The patient agreed to try the plan as discussed and return in 1 months. They were encouraged to call or send a patient portal message in the meantime with any questions or concerns prior to their next clinic visit. I spent a total of 30 minutes on the date of service in preparation, delivery, and documentation ofthe care provided to Kennedy Huerta excluding any time spent in the performance of separately billed services. This included but was no limited to providing counseling about the benefits of weight loss, about their nutritional status, detailed explanations about calorie count, types of nutrients to choose, and composition of the meals. Motivational interview provided in order to prepare the patient to achieve future goals. Madison Duron PA-C documented in this encounter Nursing Notes * Stormy Campos RN - 11/05/2023 9:20 AM EDT Chief Complaint Patient presents with Weight Management Patient states he is here to follow up regarding weight loss documented in this encounter Plan of Treatment Upcoming Encounters Date Type Department Care Team (Late st Contact Info) Description 12/11/2023 9:30 AM EDT Nurse Only Nutrition & Weight Management, [facility] [address] [address] [place], Nutrition Ed Class 1 [facility] [address] [address] 12/11/2023 11:40 AM EDT Office Visit Nutrition & Weight Management, [facility] [address] [place] [address] Madison Duron PA-C [address] [place] [phone] Scheduled Procedures Name Priority Associated Diagnoses Date/Ti me COLONOSCOPY FLEXIBLE PROXIMAL DIAGNOSTIC Recall History of colon polyps ESOPHAGOGASTRODUODENOSCOPY ( EGD), FLEXIBLE, TRANSORAL, DIAGNOSTIC Recall Romero esophagus Health Maintenance Due Date Last Done Comments Depression Screening 1989 HIV Screening 1992 Albumin/Creatinine Ratio 1995 Hepatitis C Screening 1995 DTaP,Tdap,and Td Vaccines (1 - Tdap) 1996 Hepatitis B (1 of 3 - 19+ 3-dose series) 1996 Cologuard 2022 Fecal Occult Blood Test 2022 Sigmoidoscopy 2022 COVID-19 Vaccine ( - 2022- season) 2023 GFR 03/01/2023 03/01/2022, 01/05, 12/25/2019 Influenza Vaccine (FLU shot) (#1) 2024 Diabetes Screening 03/01/2025 03/01/2022, 1 , 01/29/2022 Colonoscopy 11/17/2026 11/17/2021, 11/03, 01/02/2017, Additional history exists Colorectal Cancer Screening 11/17/2026 RETIRED - COLONOSCOPY-EVERY 5 YRS AGES 18-100 Discontinued 11/17/2021, 11/17/2021, 01/02/2017, Additional history exists GARDASIL-HPV IMMUNIZATION SERIES Aged Out No longer eligible based on patient's age to complete this topic MENINGOCOCCAL (MENACTRA/MENVEO) Aged Out No longer eligible based on patient's age to complete this topic Pneumococcal Vaccine: Pediatrics (0 to 5 Years) and At-Risk Patients (6 to 64 Years) Aged Out No longer eligible based on patient's age to complete this topic documented as of this encounter Medical Devices Not on filedocumented as of this encounter Visit Diagnoses Diagnosis Morbid obesity due to excess calories (HCC)- Primary documented in this encounter Advance Directives * Full Code (Latest Code Status on File) Date Activated Date Inactivated Comments 03/01/2022 2:58 AM 03/01/2022 10:06 PM This orde r reflects the patients wishes and were consensually agreed upon. Question Answer Comments Discussion of Advance Directives occurred with: Patient Care Teams Pigs Feet Cleaner Relationship Specialty Start Date End Date Christian Hodges OD [address] [facility] [place] [address] PCP - General Family Medicine 11/19/16 documented as of this encounter
--- OUTSIDE RECORDS SUMMARY | 2023-11-06 13:16 | External Medical Summary | Summary of Care ---
Author Name Unknown Organization [facility] Address [address] [address] Phone [phone] Care Team Providers Care Dental Internship Name Role Phone Christian Hodges OD Primary Care Provider [phone] Reason for Visit * Reason Comments Weight Management Patient states he is here to follow up regarding weight loss Encounter Details Date Type Department Care Team (Late st Contact Info) Description 11/05/2023 9:20 AM EDT Office Visit Nutrition & Weight Management, [facility] [address] [place] [address] Madison Duron PA-C [address] [place] [address] Morbid obesity due to excess calories (HCC)* [...] 4 Active Vitamin D (Ergocalciferol) 1.25 MG (34537 UT) Oral Capsule Take by mouth once [...] Diagnosed Date Coronary artery disease invo lving duckwater coronary artery of duckwater heart without angina pectoris 07/24/2022 Body mass [...] medication options -dad and sister had MBS 04/05/23 -off Saxenda - he tried 1 [...] now at 1.8mg daily -following with a life skills consultant -has cut back on chewing to 1 [...] in adult (HCC) Coronary artery disease involving duckwater coronary artery of duckwater heart without angina pectoris Review of Systems: Review of Systems Constitutional: Negative for diaphoresis and fatigue. Respiratory: Negative for chest tightness and shortness of breath. Cardiovascular: Negative for chest pain, palpitations and leg swelling. Gastrointestinal: Negative for [...] you bite it, write it! Apps like [employer] or [employer] Calorie goal: 1999 2. 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 -pt stopped pantoprazole Coronary artery disease involving duckwater coronary artery of duckwater heart without angina pectoris -pt stopped statin, taking ASA -I encouraged him to discuss with his head waitress Tobacco abuse -quit chewing Possibility of bariatric [...] and 3 educational classes; Behavioral Medicine evaluation; Element Setter evaluation; medical evaluation; monthly visits; and 10% [...] documented in this encounter Plan of Treatment Scheduled Procedures Name Priority Associated Diagnoses Date/Ti [...] Blood Test 2022 Sigmoidoscopy 2022 COVID-19 Vaccine (2022- season) 2023 GFR 03/01/2023 03/01/2022, 01/05, 12/25/2019 [...] Advance Directives occurred with: Patient Care Teams Dental Internship Relationship Specialty Start Date End Date Christian Hodges OD [address] [facility] [place] [phone] PCP - General Family Medicine 11/19/16 documented as of this encounter
--- NOTE | 2023-11-06 14:04 | Hospitalist Progress Note ---
Date of Service November 06, 2023 Assessment & Plan (1) Hypertensive urgency: (2) Uncontrolled hypertension: (3) Chest pain: Plan 48y/o M with PMHx of dyslipidemia, untreated OLIVIER, HTN, CAD [on aspirin], morbid obesity and other problems listed below who presented to the ED secondary to being alerted of a significantly elevated BP reading in the outpatient setting. Patient has had ongoing, intermittent episodes of chest pain x 4 weeks. He is being managed for the following: Hypertensive Urgency Uncontrolled HTN Intermittent Chest Pain, ro acs Patient was sent in from outpatient office for elevated blood pressure, reported intermittent chest pain for several weeks. Troponin x 4 negative, serial EKG with no ST or T changes. Outpatient chart reviews: 02/01/2022 ECHO: EF of 55-59%, Mod concentric LVH. Apr 2019 stress test was neg. Blood pressure was significantly elevated at 239/112 Patient on as needed blood pressure medication, blood pressure medications being optimized. Cardiology on board, plan for stress test today, appreciate recommendation. ECHO this admission w/ EF of 65-70%, mod concentric LVH. LV wall motion is normal. 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 He has h/o statin intolerance per chart review. Dyslipidemia Coronary Artery Disease (CAD) H/O 60% Proximal LAD Stenosis cardiac catheterization 03/01/22 : "Large, right-dominant system. Proximal LAD 60% stenosis. iFR 0.95 (not hemodynamically significant). Otherwise angiographically normal coronaries." Patient not currently on any statin regimen; continue home ASA. Per chart review, patient has a history of severe statin intolerance. Other Chronic Medical Conditions: * OLIVIER - Currently untreated per chart review. Pt would benefit from sleep study as OP. * GERD/Romero's Esophagus - Patient has followed with [facility] in the past. DVT Prophylaxis: SCDs Code Status: FULL CODE PCP: Christian Hodges DO This chart was completed in part utilizing Speech Voice Recognition Software. Grammatical errors, random word insertions, pronoun errors, and incomplete sentences are an occasional consequence of this system due to software limitations, ambient noise, and hardware issues. Any formal questions or concerns about the content, text, or information contained within the body of this dictation should be directly addressed to the provider for clarification. Admission and Anticipated Discharge Date Admission Date: November 05, 2023 Subjective Patient seen and examined. Chart, medications, telemetry reviewed. Significant headache associated with nausea and emesis overnight. Nitro paste discontinued with improvement. CT of the head negative. Recurrent chest pain overnight and in AM. Serial EKGs without acute ST segment change. Pt denies other ROS. Pt declines statin use, rather would like to d/w his cardiology for other options. Pt wants to use prn Vistaril for the time being for his anxiety management and would like to f/u w/ his pcp for shelter Mx. Physical Exam Physical Exam: GENERAL: Alert and oriented x3. NAD. HEENT: No pallor, no icterus. Pupils equal, round and reactive to light. Oral mucosa moist. NECK: No JVD, no neck masses. HEART: S1 and S2 heard. Regular rate and rhythm. No murmur, no gallop. RESPIRATORY SYSTEM: Normal AP diameter. No accessory muscle use. No wheezing, no crackles. ABDOMEN: Soft, bowel sounds present, nontender, no distention. CENTRAL NERVOUS SYSTEM: No facial droop. Speech is clear. Obeys simple commands. Moves extremities. EXTREMITIES: No edema, no erythema seen. Results & Data Results & Data Vital Signs (Past 12 Hours) Vital Signs Temp Pulse Pulse Resp BP Pulse Ox O2 Del Method 11/06/23 12:35 64 11/06/23 08:01 36.7 C 77 18 170/100 H 98 Room Air 11/06/23 03:15 36.6 C 58 L 16 126/71 96 Room Air (3) Chest pain Chest pain type: unspecified Qualified Code(s): R07.9 - Chest pain, unspecified
[2023-11-06] MEDS: amLODIPine BESYLATE 5 MG TAB PO SCH (14:11)
[2023-11-06] MEDS: TORSEMIDE 10 MG TAB PO SCH (14:14)
[2023-11-06] MEDS: SPIRONOLACTONE 12.5 MG TAB PO ONE (14:14)
[2023-11-06] MEDS: carvediloL 3.125 MG TAB PO ONE (14:17)
[2023-11-06] MEDS: LOSARTAN POTASSIUM 50 MG TAB PO SCH (14:18)
--- NOTE | 2023-11-06 14:18 | Myocardial Perfusion Study ---
Date of Service November 06, 2023 Myocardial Perfusion Study [facility] Myocardial Perfusion Study Report Indication: Chest pain, moderate coronary disease. Patient performed stress testing according to Lexiscan protocol for 6 minutes achieving a workload of 1.0 METS. Resting heart rate of 66 bpm sd to a maximum heart rate of 101 bpm. This value represents 58% of the maximal, age- predicted heart rate. The resting blood pressure of 176/114 sd to a maximal blood pressure of 192/72. Stress test was terminated due to completion of protocol. Symptoms: Nausea, headache. Hypertensive resting blood pressure with a normal response to Lexiscan injection. Normal heart rate response to Lexiscan injection. Resting ECG: Normal sinus rhythm, poor R wave progression. Stress ECG: No ischemia Conclusion: No ECG evidence of Lexiscan induced ischemia. Nuclear imaging: For the stress portion of the study 37.7 mCi of technetium 99 Cardiolite was injected at 12:40 PM on 11/06/2023. 30 minutes following the injection, imaging of the heart was performed in multiple projections. For the resting portion of the study 11 mCi of technetium 99m Cardiolite was injected IV at 11:05 AM. 1 hour following the injection, imaging of the heart was performed in the same projections. Raw data: No significant extracardiac uptake of isotope tracer on rotating, raw data images. Right ventricle: Not well-visualized Gated SPECT imaging: Normal left ventricular cavity size at rest. Normal LV wall motion and myocardial thickening. Calculated left ventricular ejection fraction 61% Rest images: Normal perfusion Stress images: Normal perfusion Conclusion: 1. Normal Lexiscan myocardial perfusion imaging study without evidence of inducible ischemia, or myocardial scar. 2. Normal gated SPECT imaging. 3. The left ventricular ejection fraction 61% Jose Fenton DO [facility]PITALAlbaro
[2023-11-06] MEDS ORDERED: hydrALAZINE HCL 20 MG/ML VIAL IV PRN (14:19)
[2023-11-06] MEDS ORDERED: LABETALOL HCL IV 5 MG/ML 20ML IV PRN (14:19)
[2023-11-06] MEDS: REGADENOSON 0.4 MG/5 ML SYR IV ONE (14:26)
[2023-11-06] MEDS: carvediloL 6.25 MG TAB PO SCH (18:00)
[2023-11-06] MEDS: PANTOprazole 40 MG TAB PO SCH (19:58)
--- NOTE | 2023-11-06 23:54 | Electrocardiogram Report ---
Test Reason : Blood Pressure : / mmHG Vent. Rate : 059 BPM Atrial Rate : 059 BPM P-R Int : 172 ms QRS Dur : 082 ms QT Int : 410 ms P-R-T Axes : 036 -08 048 degrees QTc Int : 405 ms Sinus bradycardia Minimal voltage criteria for LVH, may be normal variant ( R in aVL ) Septal infarct , age undetermined Abnormal ECG When compared with ECG of 14-JAN-2022 16:00, T wave inversion no longer evident in Lateral leads Confirmed by Abimael Wooten ([id number]) on 11/06/2023 11:54:16 PM Referred By: REFERRED SELF Confirmed By:Abimael Wooten
--- NOTE | 2023-11-07 00:15 | Electrocardiogram Report ---
Test Reason : Blood Pressure : / mmHG Vent. Rate : 073 BPM Atrial Rate : 073 BPM P-R Int : 162 ms QRS Dur : 088 ms QT Int : 402 ms P-R-T Axes : 033 -04 058 degrees QTc Int : 442 ms Normal sinus rhythm Septal infarct (cited on or before 05-NOV-2023) Possible Anterolateral infarct , age undetermined Abnormal ECG When compared with ECG of 05-NOV-2023 10:48, Borderline criteria for Anterolateral infarct are now Present Confirmed by Abimael Wooten ([id number]) on 11/07/2023 12:14:25 AM Referred By: REFERRED SELF Confirmed By:Abimael Wooten
--- NOTE | 2023-11-07 00:15 | Electrocardiogram Report ---
Test Reason : Blood Pressure : / mmHG Vent. Rate : 105 BPM Atrial Rate : 105 BPM P-R Int : 142 ms QRS Dur : 078 ms QT Int : 360 ms P-R-T Axes : 050 007 054 degrees QTc Int : 475 ms Sinus tachycardia Possible Left atrial enlargement Possible Anterior infarct (cited on or before 05-NOV-2023) Abnormal ECG When compared with ECG of 05-NOV-2023 14:29, Questionable change in initial forces of Anterolateral leads Confirmed by Abimael Wooten ([id number]) on 11/07/2023 12:15:25 AM Referred By: REFERRED SELF Confirmed By:Abimael Wooten
--- NOTE | 2023-11-07 00:22 | Electrocardiogram Report ---
Test Reason : Blood Pressure : / mmHG Vent. Rate : 069 BPM Atrial Rate : 069 BPM P-R Int : 162 ms QRS Dur : 100 ms QT Int : 440 ms P-R-T Axes : 030 002 032 degrees QTc Int : 471 ms Normal sinus rhythm Possible Anterior infarct (cited on or before 05-NOV-2023) Abnormal ECG When compared with ECG of 05-NOV-2023 14:49, Vent. rate has decreased BY 36 BPM Questionable change in initial forces of Anterolateral leads Confirmed by Abimael Wooten ([id number]) on 11/07/2023 12:21:55 AM Referred By: REFERRED SELF Confirmed By:Abimael Wooten
--- NOTE | 2023-11-07 00:23 | Electrocardiogram Report ---
Test Reason : Blood Pressure : / mmHG Vent. Rate : 063 BPM Atrial Rate : 063 BPM P-R Int : 168 ms QRS Dur : 104 ms QT Int : 446 ms P-R-T Axes : 036 004 042 degrees QTc Int : 456 ms Normal sinus rhythm Poor R wave progression, consider anterior NC vs. lead placement vs. LVH When compared with ECG of 05-NOV-2023 21:25, No significant change was found Confirmed by Abimael Wooten ([id number]) on 11/07/2023 12:22:38 AM Referred By: REFERRED SELF Confirmed By:Abimael Wooetn
[2023-11-07 08:33] LABS: BUN Creatinine Ratio 22.5 (10-20); Calcium 8.8 mg/dl (8.6-10.3); Creatinine Clr Calc Pharmacy 150.8 ml/min; Est GFR (African American) 124.2 ml/min; Est GFR (Non-African American) 107.1 ml/min; Magnesium 2.1 mg/dl (1.7-2.4); Phosphorus 2.6 mg/dl (2.5-4.9)
--- NOTE | 2023-11-07 08:43 | Cardiology Progress Note ---
Date of Service November 07, 2023 Assessment & Plan (1) Hypertensive urgency: (2) Chest pain at rest: (3) Uncontrolled hypertension: (4) Nonobstructive atherosclerosis of coronary artery: (5) Dyslipidemia, goal LDL below 70: Plan OK for discharge from a cardiac standpoint Recommendations: 1. Carvedilol 6.25 mg twice a day 2. Losartan 100 mg/day 3. Amlodipine 10 mg/day 4. Torsemide 5 mg/day 5. Spironolactone 12.5 mg/day. 6. ASA 81 mg/day 7. Atorvastatin 10 mg/day 8. Nonpharmacologic treatments of hypertension discussed. 9. Weight loss urged through dietary changes and exercise as tolerated. 10. CPAP for sleep apnea 11. Outpatient cardiology follow-up in 2 weeks, with laboratory work to be obtained at that time. 12. Past poor tolerance to thiazide diuretics (history of gout) and clonidine reported. I spent a total of 26 minutes on the date of service in preparation, delivery, and documentation of the care provided to this patient excluding any time spent in the performance of separately billed services. This visit was a split-shared visit with the substantive portion of the medical decision making performed by the supervising glove parts inspector/billing provider. Admission and Anticipated Discharge Date Admission Date: November 05, 2023 Supervising Physician Co-Signing Physician Notes I have personally performed a history and physical examination on the patient. I have reviewed the advance practitioner's documentation, and I agree with, and take responsibility for the plan of care. 48-year-old male admitted with hypertensive urgency and chest discomfort. ECG without ischemic changes. High-sensitivity troponin negative x 3. Cardiac catheterization performed 2021 with moderate, nonobstructive CAD. Bedside echocardiogram demonstrates hypertensive heart disease, left ventricular hypertrophy, without regional wall motion abnormality. Lexiscan nuclear stress test negative for inducible ischemia. Multiple medication changes as detailed above. Continue current antihypertensive therapy regimen. Outpatient cardiology follow-up in 2 to 4 weeks. Cardiology will sign off. Please call with additional concerns/questions. I spent a total of 20 minutes on the date of service in preparation, delivery, and documentation of the care provided to this patient, excluding any time spent in the performance of separately billed services. Jose Fenton DO, [facility] Subjective Patient seen and examined. Chart, medications, telemetry reviewed. Feeling better. Anxious for discharge. Review of Systems Review of Systems: Complete Review of Systems is as stated above, negative, or noncontributory. Physical Exam Physical Exam: General: A&Ox3. NAD. HENT: Normocephalic. Atraumatic. Eyes: PER. Neck: No JVD. Heart: RRR, 60 bpm. Grade I-II systolic murmur. Lungs: Clear to auscultation. Abdomen: +BS. Soft. Nontender. No masses or organomegaly. Extremities: No clubbing, cyanosis, or edema. Limited neurological examination is without focal deficits. Pulses: Posterior tibial=2/4. Results & Data Vital Signs (Past 12 Hours) Vital Signs Temp Pulse Pulse Resp BP Pulse Ox O2 Del Method 11/07/23 07:42 36.7 C 63 18 150/95 H 97 Room Air 11/07/23 03:24 36.6 C 50 L 18 135/77 96 Room Air 11/06/23 22:58 65 11/06/23 22:56 36.8 C 58 L 18 144/83 H 96 Room Air Laboratory Results Comprehensive Metabolic Panel 11/07/23 Range/Units 07:50 Sodium 137 (136-145) mmol/L Potassium 4.0 (3.5-5.1) mmol/L Chloride 103 (98-107) mmol/L Carbon Dioxide 28 (21-32) mmol/L BUN 18 (6-23) mg/dl Creatinine 0.80 (0.6-1.4) mg/dl Glucose 115 H (70-99(Fasting)) mg/dl Calcium 8.8 (8.6-10.3) mg/dl Intake and Output 11/06/23 11/07/23 11/07/23 22:59 06:59 14:59 Intake Total 300 / 660 Balance 300 / 660 Intake: Oral 300 / 660 Other: # Unmeasured Voids 1 2 Diagnostic Findings High-sensitivity troponin negative x 4 at 5.6 -> 6.6 -> 9.5 -> 7.3 pg/mL November 05, 2023 TTE Normal LV systolic function. EF 65 to 70%. Moderate concentric LVH. Normal LV wall motion. Grade 1 diastolic dysfunction. No significant valvular pathology. November 06, 2023 Lexiscan Conclusions: Normal Lexiscan myocardial perfusion imaging study without evidence of inducible ischemia, or myocardial scar. Normal gated SPECT imaging. The left ventricular ejection fraction 61% Telemetry: Sinus in the 50's to 80's.
--- NOTE | 2023-11-07 11:28 | Discharge Summary ---
Date of Service November 07, 2023 Admission HPI Per Admitting Provider Kennedy Huerta is a 48y/o M with PMHx of dyslipidemia, OLIVIER, HTN, CAD [on aspirin], morbid obesity and other problems listed below who presented to the ED secondary to being alerted of a significantly elevated BP reading in the outpatient setting. History obtained from patient and associated chart review. Patient was being seen at [facility] this morning when his BP was noted to be around 180/90; he was ultimately instructed to come here urgently to be seen. Patient is currently on losartan 100mg daily and amlodipine 5mg daily [according to chart review]. Patient's BP has been uncontrolled for "25 years." SBP has been running in the 100-200s when he's previously checked it at home. He does not routinely to check his BP at home. Troponin 5.6 on admission. Patient's BP on arrival to the ED was 239/112. He received 2 doses of 5mg IV hydralazine in the ED prior to arriving at his bedside. Patient's BP was 193/135 upon my arrival to the ED. Ordered him an additional dose of 5 mg IV hydralazine [total of IV hydralazine = 15mg] and his BP came down to 150/103. Patient had an episode of severe chest pain and pressure in the ED after my arrival. Dr. Johansen she was also present in the room when this episode occurred. Patient became very tachypneic during this episode; he was placed on 2L of supplemental oxygen via non-rebreather, however his oxygen saturation never dropped. Patient ultimately received 3 doses of 0.4mg sublingual nitroglycerin while we were in the room. Patient reported some improvement of his chest pain/pressure with administration of those [address] Ashby popped into see the patient as well when this episode occurred. She ordered him PRN IV fentanyl for the chest pain as well. BP back down at 183/108 when last checked in the room ~3PM. Was not really able to get a good history from the patient, as this episode occurred soon after my arrival to the ED and the patient was unable to communicate appropriately due to pain. But of note, patient did state "an intolerance to multiple BP medications in the past." According to a previous [facility] visit with John Ferguson on 06/03/2019 --> "It sounds as though he had issues with depression as well as erectile dysfunction with past use of beta-stephie therapy." Patient has also reportedly, according to chart review, "not tolerated HCTZ and clonidine." Patient had previously been on a regimen of clonidine, losartan and hydrochlorothiazide in the past per chart review - unsure of specific doses. Patient had Lexiscan nuclear stress testing done in April 2019 that was negative. Patient previously had chewed tobacco regularly, but stopped doing so approximately 2 years ago. Admission Exam Per Admitting Provider GENERAL: Alert and oriented x3. NAD. was put on NR briefly then to 2L NC O2 since he had chest pressure while at bedside eval. Obese classIII. HEENT: No pallor, no icterus. Pupils equal, round and reactive to light. Oral mucosa moist. NECK: No JVD, no neck masses. HEART: S1 and S2 heard. Regular rate and rhythm. No murmur, no gallop. RESPIRATORY SYSTEM: Normal AP diameter. No accessory muscle use. No wheezing, no crackles. ABDOMEN: Soft, bowel sounds present, nontender, no distention. CENTRAL NERVOUS SYSTEM: No facial droop. Speech is clear. Obeys simple commands. Moves extremities. EXTREMITIES: No edema, no erythema seen. Principal Diagnosis Hypertensive urgency Intermittent chest pain, ruled out ACS History of GERD/Romero's esophagus Obesity Untreated OLIVIER Dyslipidemia Nonobstructive atherosclerosis of coronary artery Discharge Exam GENERAL: Alert and oriented x3. NAD. Obese class III. HEENT: No pallor, no icterus. Pupils equal, round and reactive to light. Oral mucosa moist. NECK: No JVD, no neck masses. HEART: S1 and S2 heard. Regular rate and rhythm. No murmur, no gallop. RESPIRATORY SYSTEM: Normal AP diameter. No accessory muscle use. No wheezing, no crackles. ABDOMEN: Soft, bowel sounds present, nontender, no distention. CENTRAL NERVOUS SYSTEM: No facial droop. Speech is clear. Obeys simple comma nds. Moves extremities. EXTREMITIES: No edema, no erythema seen. Discharge Data Allergies Allergy/AdvReac Type Severity Reaction Status Date / Time lidocaine Allergy Unknown "SEVERE Verified 11/05/23 13:15 HIVES" meperidine Allergy Unknown EXTREMELY Verified 11/05/23 13:15 ILL oxycodone AdvReac Intermediate sick Verified 11/05/23 21:36 nitroglycerin AdvReac Headache Verified 11/05/23 21:34 Consultations 11/05/23 13:54 ED Decision to Admit Stat 11/05/23 15:02 Consult Cardiology Routine Ordered Studies 11/05/23 21:30 CT head/brain wo con Stat Hospital Course (1) Hypertensive urgency: (2) Uncontrolled hypertension: (3) Chest pain: Plan 48y/o M with PMHx of dyslipidemia, untreated OLIVIER, HTN, CAD [on aspirin], morbid obesity and other problems listed below who presented to the ED secondary to being alerted of a significantly elevated BP reading in the outpatient setting. Patient has had ongoing, intermittent episodes of chest pain x 4 weeks. He was managed for the following: Hypertensive Urgency Uncontrolled HTN Intermittent Chest Pain, ro acs Patient was sent in from outpatient office for elevated blood pressure, reported intermittent chest pain for several weeks. Troponin x 4 negative, serial EKG with no ST or T changes. Outpatient chart reviews: 02/01/2022 ECHO: EF of 55-59%, Mod concentric LVH. Apr 2019 stress test was neg. Blood pressure was significantly elevated at 239/112 Cardio evaled, stress test neg. blood pressure medications optimized. f/u w/ cardio on DC ECHO this admission w/ EF of 65-70%, mod concentric LVH. LV wall motion is normal. LDL is 137, Pt has been started on low dose atorvastatin per cards. Dyslipidemia Coronary Artery Disease (CAD) H/O 60% Proximal LAD Stenosis cardiac catheterization 03/01/22 : "Large, right-dominant system. Proximal LAD 60% stenosis. iFR 0.95 (not hemodynamically significant). Otherwise angiographically normal coronaries." c/w asa and statin. Other Chronic Medical Conditions: * OLIVIER - Currently untreated per chart review. Pt would benefit from sleep study as OP. * GERD/Romero's Esophagus - Patient has followed with No GI in the past. complaints of burping, will put him on PPI BID, GI f/u in 2 - 4 weeks, pt made aware, he voiced understanding. DVT Prophylaxis: SCDs Code Status: FULL CODE PCP: Christian Hodges DO Patient is being discharged home with following instruction at the point of discharge: Follow-up with your primary care physician within a week time and likely you will need labs CBC/CMP/magnesium/phosphorus. You were admitted for very high blood pressure, cardiology evaluated you while in hospital, your cardiac medications have been optimized. Take medications as prescribed. Measure your blood pressure twice a day, maintain a log to take to your primary care physician and cardiology office for ongoing management of your blood pressure. Follow up with your cardiology in 2 weeks time of discharge. You were also diagnosed with dyslipidemia, atorvastatin at a lower dose has been started. As discussed at the bedside, weight reduction is highly encouraged. As you indicated, dietary changes and exercise will help with weight loss. If ongoing problem with weight reduction, continue to pursue bariatric surgery evaluation which you already have been undergoing per our discussion. Highly recommend you go through formal sleep study as an outpatient. Coordinate with your PCP office to set up the test. Maintain heart healthy, low-sodium diet. For your history of GERD/Romero's esophagus and concern for reflux symptoms, you will be discharged on Protonix 40 mg twice a day. Recommend to follow-up with GI doctor in 2 to 4 weeks time, coordinate with your PCP office to set up the referral. For your anxiety, you will be discharged on as needed Vistaril. If ongoing problem, follow-up with your PCP office for long-term monitoring/management. Take your medications as prescribed. Please make sure that you are able to get your medications today by calling your pharmacy before you leave the hospital so that your treatment continuity is not broken. This chart was completed in part utilizing Speech Voice Recognition Software. Grammatical errors, random word insertions, pronoun errors, and incomplete sentences are an occasional consequence of this system due to software limitations, ambient noise, and hardware issues. Any formal questions or concerns about the content, text, or information contained within the body of this dictation should be directly addressed to the provider for clarification. Home Health Attestation I certify that this patient is under my care and that I, or a physicians salon shampoo assistant working with me, had a face to-face encounter that meets the home health gurt-cy-jbeq encounter requirements with this patient. The encounter with the patient was in whole, or in part, for the following medical condition, which is the primary reason for home health care (list medical condition): I certify that, based on my findings, the following services are medically necessary home health services: My clinical findings support the need for the above services because: Further, I certify that my clinical findings support that this patient is homebound (i.e. absences from home require considerable and taxing effort and are for medical reasons or taoist services or infrequently or of short duration when for other reasons) because: Certification for Home Health Services: Based on the above findings, I certify that this patient is confined to the home and needs intermittent care home care, physical therapy and/or speech therapy or continues to need occupational therapy. The patient is under my care, and I have initiated the establishment of the plan of care. This patient will be followed by a physician who will periodically review the plan of care. Total Time Total Time Spent Total Time Spent (In Minutes): 45 Discharge Plan Discharge Items Patient Disposition: Home - Self-Care Reason For Visit: CHEST PAIN, HTN URGENCY Discharge Diagnosis: Hypertensive urgency Intermittent chest pain, ruled out ACS History of GERD/Romero's esophagus Obesity Untreated OLIVIER Dyslipidemia Nonobstructive atherosclerosis of coronary artery Activity: Resume your previous activity Non-emergency contact: Primary Care Provider Call non-emergency contact if: you have any medication questions Follow-up/Referrals: Christian Hodges D.O. [Primary Care Provider] - Diet: Heart Healthy and Low Sodium (2gm) Addtl Attending Provider Instructions: Follow-up with your primary care physician within a week time and likely you will need labs CBC/CMP/magnesium/phosphorus. You were admitted for very high blood pressure, cardiology evaluated you while in hospital, your cardiac medications have been optimized. Take medications as prescribed. Measure your blood pressure twice a day, maintain a log to take to your primary care physician and cardiology office for ongoing management of your blood pressure. Follow up with your cardiology in 2 weeks time of discharge. You were also diagnosed with dyslipidemia, atorvastatin at a lower dose has been started. As discussed at the bedside, weight reduction is highly encouraged. As you ind icated, dietary changes and exercise will help with weight loss. If ongoing problem with weight reduction, continue to pursue bariatric surgery evaluation which you already have been undergoing per our discussion. Highly recommend you go through formal sleep study as an outpatient. Coordinate with your PCP office to set up the test. Maintain heart healthy, low-sodium diet. For your history of GERD/Romero's esophagus and concern for reflux symptoms, you will be discharged on Protonix 40 mg twice a day. Recommend to follow-up with GI doctor in 2 to 4 weeks time, coordinate with your PCP office to set up the referral. For your anxiety, you will be discharged on as needed Vistaril. If ongoing problem, follow-up with your PCP office for long-term monitoring/management. Take your medications as prescribed. Please make sure that you are able to get your medications today by calling your pharmacy before you leave the hospital so that your treatment continuity is not broken. Pending Studies at Discharge: No Stand-Alone Forms: My [facility], Smoking Cessation Medications and DC Order Prescriptions: New amlodipine 10 mg tablet 10 mg PO DAILY Qty: 30 0RF carvedilol 6.25 mg Tablet 6.25 mg PO BIDM Qty: 60 0RF hydroxyzine HCl 25 mg Tablet 25 mg PO TID PRN (Reason: anxiety) Qty: 30 0RF torsemide 10 mg Tablet 5 mg PO QAM Qty: 15 0RF pantoprazole 40 mg Tablet,Delayed Release (Dr/Ec) 40 mg PO BID Qty: 60 0RF Continued aspirin 81 mg Tablet,Delayed Release (Dr/Ec) 81 mg PO QAM losartan 100 mg Tablet 100 mg PO QAM Discontinued amlodipine 2.5 mg Tablet 5 mg PO DAILY Discharge Orders: Discharge Order (Routine); Ordered 11/07/23 Ordered By: Arya Johansen Admission Data Admit Date/Time: 11/05/23 14:02 Attending Provider: Arya Johansen Admit Provider: Arya Johansen Primary Care Provider: Christian Hodges Other Providers: Jose Fenton; Arya Johansen
[2023-11-08 07:22] LABS: Babesia microti DNA Not Detected (Not Detected)
== END 2023-11-07 13:29 | disposition home or self-care (01) | DRG 305 ==
LOC: ED 10:39 → 2W 14:02 → 2E 21:10
DX: K22.70 Barrett's esophagus without dysplasia; I10 Essential (primary) hypertension; I16.0 Hypertensive urgency; Z88.8 Allergy status to other drugs, medicaments and biological substances; I25.10 Atherosclerotic heart disease of native coronary artery without angina pectoris; E78.5 Hyperlipidemia, unspecified; R07.89 Other chest pain; G43.909 Migraine, unspecified, not intractable, without status migrainosus; Z79.82 Long term (current) use of aspirin; Z88.5 Allergy status to narcotic agent; Z87.891 Personal history of nicotine dependence; E66.01 Morbid (severe) obesity due to excess calories; Z68.41 Body mass index [BMI] 40.0-44.9, adult; F32.A Depression, unspecified; G47.33 Obstructive sleep apnea (adult) (pediatric); R00.1 Bradycardia, unspecified